=== PATIENT | male | born 1945 | race Caucasian/White ===

== ENCOUNTER 2019-05-13 19:46 | Inpatient (IN) | payer OTHER ==
--- NOTE | 2019-05-13 20:30 | PDOC ---
History of Present Illness - General Chief Complaint: SIRS, Suspected/Possible Stated Complaint: CHILLS/DIF/BREATHING/L/CHEST PAIN Time Seen by Provider: 05/13/19 20:29 Past History - Past Medical History Allergies/Adverse Reactions: Allergies Allergy/AdvReac Type Severity Reaction Status Date / Time No Known Allergies Allergy Verified 03/10/14 18:35 Home Medications: Ambulatory Orders Tacrolimus [Prograf] 1 mg PO BID 03/10/14 Candesartan Cilexetil [Atacand -] 8 mg PO DAILY 02/13/16 HTN: Yes Liver Disease: Yes (LIVER TRANSPLANT) - Surgical History Abdominal Surgery: Yes (LIVER TRANSPLANT) - Suicide/Smoking/Psychosocial Hx Smoking History: Never smoked Hx Alcohol Use: No Drug/Substance Use Hx: No *Physical Exam - Vital Signs Last Vital Signs Temp Pulse Resp BP Pulse Ox 101.1 F H 105 H 20 133/59 L 96 05/13/19 20:17 05/13/19 20:17 05/13/19 20:17 05/13/19 20:17 05/13/19 20:17 ED Treatment Course - LABORATORY CBC & Chemistry Diagram: 05/15/19 04:13 05/15/19 04:13 Medical Decision Making - Medical Decision Making 73yo M with 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 Patient states he felt very "shaky" and "hot and cold" all day. Denies sick contacts or recent travel. He is concerned that he applied a significant amount of bug spray yesterday and today as he was working outside the house. Starting feeling chest pain described as a "tightness" and "discomfort" starting around 10:15 with associated diaphoresis. This pain abated around noon when he saw his primary care physician. While he attended several meetings throughout the day, reports feeling very "weak." Has not taken anything for his symptoms. Endorses subjective fever and chills. PCP: Dr. Coleman Hepatology: Dr. Mikey Adrian ROS: Constitutional: +fever, +chills HEENT: no throat pain, no dysphagia Cardiovascular: +chest pain, no palpitations Respiratory: no cough, no shortness of breath Gastrointestinal: no abdominal pain, no diarrhea Genitourinary: no dysuria, no hematuria Musculoskeletal: no myalgia, no arthralgia Skin: no rash, no itching Neurologic: no headache, +weakness PE: General: Awake, alert, and fully oriented, in no acute distress Head: No signs of trauma Eyes: EOMI, sclera anicteric ENT: Dry mucus membranes Neck: Normal ROM, supple Lungs: Lungs clear, Normal breath sounds Cardio: Regular rhythm, S1 and S2 present Abdomen: Soft, nontender. No guarding, no rebound, no masses Extremities: Normal range of motion, Distal pulses present SKIN: Warm, Dry, normal turgor Neurologic: Cranial nerves II through XII grossly intact. Normal speech ED Course/MDM: DDX including but not limited to SIRS due infection such as UTI, PNA, bacteremia , influenza Patient is s/p liver transplant and on immunosuppressive medications Due to fever and tachycardia, sepsis workup initiated Ofirmev Fluids Vanc/ Zosyn 05/13/19 20:57 EKG: rate 108, QTc 423, sinus tachycardia with PACs Mild leukocytosis, WBC=11.4 No anemia Platelets low at 97 Electrolytes unremarkable Normal lactate Cr=1.5 Tpn undetectable UA without infection Influenza negative Patient initially reluctant to stay for admission as he works as he has an important meeting tomorrow morning, however now amenable to staying. Plan for admission for SIRS in immunocompromised patient Dr. Ryan discussed case with inpatient team who accepted patient for admission under Dr. Coleman Updated patient's who called the ER for an update 05/13/19 23:46 CXR without acute pathology, per radiology: "A single view the chest has been submitted. Since 04/02/2010 there is a slightly more prominent mediastinum with weaker inspiration, central crowding but no sign of any true infiltrate or failure. Angles are sharp. The bones and soft tissues are intact. An acute process is not seen. " *DC/Admit/Observation/Transfer Diagnosis at time of Disposition: Systemic inflammatory response syndrome (SIRS) - Discharge Dispostion Condition at time of disposition: Fair Decision to Admit order: Yes - Referrals - Patient Instructions - Post Discharge Activity
[2019-05-13] MEDS ORDERED: ACETAMINOPHEN 1000 MG/100 ML VIAL (NON FORMULARY) IVPB ONE (20:31)
[2019-05-13] MEDS ORDERED: PIPERACILLIN/TAZOB 4.5 GM 4.5 GM in DEXTROSE 5%-WATER 100 ML IVPB ONE (20:33)
[2019-05-13] MEDS ORDERED: VANCOMYCIN 1 GM in D5W (PRE-DOCKED) 1,000 MG/250 ML IVPB ONE (20:33)
[2019-05-13] MEDS ORDERED: ACETAMINOPHEN INJECTION 100 ML IVPB ONE (20:52)
[2019-05-13] MEDS ORDERED: PIPERACILLIN/TAZOB 4.5 GM 4.5 GM/100 ML BAG IVPB ONE (20:53)
[2019-05-13] MEDS ORDERED: VANCOMYCIN 1 GRAM (PRE-DOCKED) 1,000 MG/250 ML BAG IVPB ONE (20:53)
[2019-05-13 21:42] LABS: VENOUS PC02 34.7 mmHg (38-52); VENOUS PH 7.41 (7.31-7.41); VENOUS PO2 49.7 mmHg (28-48)
[2019-05-13 21:55] LABS: INR 1.17 (0.83-1.09); PROTHROMBIN TIME (PATIENT) 13.8 SEC (9.7-13.0)
[2019-05-13 21:56] LABS: BASO % 0.3 % (0-2.0); EOS % 0.2 % (0-4.5); HEMATOCRIT 40.3 % (35.4-49); HEMOGLOBIN 13.5 GM/dL (11.7-16.9); LYMPH % 4.8 % (8-40); MCH 31.4 pg (25.7-33.7); MCHC 33.4 g/dl (32.0-35.9); MEAN CELL VOLUME 94.1 fl (80-96); MEAN PLT VOLUME 10.5 fl (7.5-11.1); MONO % 7.5 % (3.8-10.2); NEUT % 87.2 % (42.8-82.8); PLATELET COUNT 97 K/MM3 (134-434); RBC 4.29 M/mm3 (4.00-5.60); RDW 14.4 % (11.9-15.9); WHITE BLOOD COUNT 11.3 K/mm3 (4.0-10.0)
[2019-05-13 21:57] LABS: ACTIVATED PTT 32.6 SECONDS (25.2-36.5); ALBUMIN 3.4 g/dl (3.4-5.0); BILIRUBIN,TOTAL 0.8 mg/dL (0.2-1); BLOOD UREA NITROGEN 24.7 mg/dL (7-18); CREATININE 1.5 mg/dL (0.55-1.3); POTASSIUM 4.4 mmol/L (3.5-5.1)
--- NOTE | 2019-05-13 22:01 | PDOC ---
Documentation entered by Roger Royal SCRIBE, acting as scribe for Ramila Rayn DO. Ramila Ryan, DO: This documentation has been prepared by the Genny parks Xhesika, SCRIBE, under my direction and personally reviewed by me in its entirety. I confirm that the documentation accurately reflects all work, treatment, procedures, and medical decision making performed by me. 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 The patient was advised by his PCP, Dr. Barry, to come to the ED for further workup. The patient states he endorsed sick contact at work. Patient states his most recent travels were early March. patient denies any rashes, however, he has gotten some mosquito bites. The patient denies chest pain, shortness of breath, headache. Denies fever, nausea, vomiting, diarrhea and constipation. Denies dysuria, frequency, urgency and hematuria. Allergies: NKDA Past surgical history: liver transplant PCP: Dr. Barry - Physicial Exam PE: 05/13/19 23:33 GENERAL: Awake, alert, and fully oriented, in no acute distress HEAD: No signs of trauma NECK: Normal ROM, supple, no lymphadenopathy, JVD, or masses LUNGS: Breath sounds equal, clear to auscultation bilaterally. No wheezes, and no crackles HEART: (+) tachycardic. Normal S1 and S2, no murmurs, rubs or gallops ABDOMEN: Soft, nontender, normoactive bowel sounds. No guarding, no rebound. No masses EXTREMITIES: Normal range of motion, no edema. No clubbing or cyanosis. No cords, erythema, or tenderness NEUROLOGICAL: Cranial nerves II through XII grossly intact. Normal speech, normal gait SKIN: (+) warm to touch. Dry, normal turgor, no rashes or lesions noted. - Medical Decision Making 05/13/19 21:44 I, Dr. Ramila Ryan, DO, attest that this document has been prepared under my direction and personally reviewed by me in its entirety. I further attest, that it accurately reflects all work, treatment, procedures and medical decision -making performed by me. 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 Barry 05/13/19 22:35 cxr clear 05/13/19 22:36 mildly elevated wbc and elevated cr based on prior cr rodney ivf hydration running lactate neg 05/13/19 22:37 flu neg 05/13/19 22:57 ua sent 05/13/19 23:16 case discussed with Evy Govea NP from [facility] covering dr. barry who accepts pt to service 05/13/19 23:54 ua neg *DC/Admit/Observation/Transfer Diagnosis at time of Disposition: Systemic inflammatory response syndrome (SIRS) - Discharge Dispostion Condition at time of disposition: Fair Decision to Admit order: Yes - Referrals - Patient Instructions - Post Discharge Activity Heart Score/ECG Review - ECG Intrepretation Comment:: 05/13/19 22:35 sinus tach at 108, nl axis, nl inteval, no acute st/t wave findings
[2019-05-13 22:37] LABS: PLATELET ESTIMATE DECREASED
--- NOTE | 2019-05-13 23:22 | HP ---
Admitting History and Physical - Primary Care Physician PCP: Shahzad Coleman - Admission Chief Complaint: Rigors, Fever History of Present Illness: This is a 73 y/o man with a PMHx of Hep B s/p Liver Transplant (on Prograf). Who presents to the ED for fever and rigors. Patient was seen at his PMD today and was noted to have rigors. Patient reports having subjective fever 102.0 at home, with dizziness, lightheadedness and generalized bodyaches. 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 Atacand 16mg po QD. Entecavir po QD Family Disease History - Family Disease History Family Disease History: Diabetes: Father (), Mother (Hepatitis B, ), CA: Sister (Colon Ca with Mets in remission), Other: Mother Review of Systems - Review of Systems Constitutional: reports: Chills, Fever Eyes: reports: No Symptoms HENT: reports: No Symptoms Neck: reports: No Symptoms Cardiovascular: reports: No Symptoms Respiratory: reports: No Symptoms Gastrointestinal: reports: No Symptoms Genitourinary: reports: No Symptoms Breasts: reports: No Symptoms Reported Musculoskeletal: reports: Back Pain Integumentary: reports: No Symptoms Neurological: reports: No Symptoms Endocrine: reports: No Symptoms Hematology/Lymphatic: reports: No Symptoms Psychiatric: reports: No Symptoms Pain Intensity: 4 Physical Examination Vital Signs: Vital Signs Temperature 101.1 F H 05/13/19 20:17 Pulse Rate 105 H 05/13/19 20:17 Respiratory Rate 20 05/13/19 20:17 Blood Pressure 133/59 L 05/13/19 20:17 O2 Sat by Pulse Oximetry (%) 96 05/13/19 20:17 Constitutional: Yes: Well Nourished, No Distress, Obese Eyes: Yes: WNL, Conjunctiva Clear, EOM Intact, Sclera Icterus HENT: Yes: WNL, Atraumatic, Normocephalic Neck: Yes: WNL, Supple, Trachea Midline Cardiovascular: Yes: WNL, Regular Rate and Rhythm, S1, S2 Respiratory: Yes: Diminished (R- base). No: Rales, Rhonchi Gastrointestinal: Yes: WNL, Normal Bowel Sounds, Soft, Abdomen, Obese ...Rectal Exam: Yes: Deferred Renal/: Yes: WNL Breast(s): Yes: WNL Musculoskeletal: Yes: WNL Extremities: Yes: WNL Edema: No Peripheral Pulses WNL: Yes Neurological: Yes: WNL, Alert, Oriented, Cran Nerves II-XII Intact ...Motor Strength: WNL Psychiatric: Yes: WNL, Alert, Oriented Labs: CBC, BMP 05/13/19 21:05 05/13/19 21:05 Laboratory Results - last 24 hr 05/13/19 05/13/19 05/13/19 21:05 21:05 21:05 WBC 11.3 H RBC 4.29 Hgb 13.5 Hct 40.3 MCV 94.1 MCH 31.4 MCHC 33.4 RDW 14.4 Plt Count 97 L MPV 10.5 Absolute Neuts (auto) 9.8 H Neutrophils % 87.2 H D Lymphocytes % 4.8 L D Monocytes % 7.5 Eosinophils % 0.2 D Basophils % 0.3 Nucleated RBC % 0 Platelet Estimate Decreased Platelet Comment No clumping noted PT with INR INR PTT (Actin FS) VBG pH POC VBG pCO2 POC VBG pO2 VBG HCO3 VBG O2 Sat (Faith) VBG Base Excess Sodium 138 Potassium 4.4 Chloride 108 H Carbon Dioxide 23 Anion Gap 7 L BUN 24.7 H Creatinine 1.5 H Est GFR (CKD-EPI)AfAm 53.52 Est GFR (CKD-EPI)NonAf 46.17 Random Glucose 157 H Lactic Acid Calcium 8.0 L Total Bilirubin 0.8 AST 18 ALT 36 Alkaline Phosphatase 139 H Troponin I < 0.02 Total Protein 7.0 Albumin 3.4 Urine Color Urine Appearance Urine pH Ur Specific [place] Urine Protein Urine Glucose (UA) Urine Ketones Urine Blood Urine Nitrite Urine Bilirubin Urine Urobilinogen Ur Leukocyte Esterase Influenza A (Rapid) Influenza B (Rapid) 05/13/19 05/13/19 05/13/19 21:05 21:05 21:05 WBC RBC Hgb Hct MCV MCH MCHC RDW Plt Count MPV Absolute Neuts (auto) Neutrophils % Lymphocytes % Monocytes % Eosinophils % Basophils % Nucleated RBC % Platelet Estimate Platelet Comment PT with INR 13.80 H INR 1.17 H PTT (Actin FS) 32.6 VBG pH 7.41 POC VBG pCO2 34.7 L POC VBG pO2 49.7 H VBG HCO3 21.7 L VBG O2 Sat (Faith) 83.4 H VBG Base Excess -1.9 Sodium Potassium Chloride Carbon Dioxide Anion Gap BUN Creatinine Est GFR (CKD-EPI)AfAm Est GFR (CKD-EPI)NonAf Random Glucose Lactic Acid 1.5 Calcium Total Bilirubin AST ALT Alkaline Phosphatase Troponin I Total Protein Albumin Urine Color Urine Appearance Urine pH Ur Specific [place] Urine Protein Urine Glucose (UA) Urine Ketones Urine Blood Urine Nitrite Urine Bilirubin Urine Urobilinogen Ur Leukocyte Esterase Influenza A (Rapid) Influenza B (Rapid) 05/13/19 05/13/19 21:18 23:30 WBC RBC Hgb Hct MCV MCH MCHC RDW Plt Count MPV Absolute Neuts (auto) Neutrophils % Lymphocytes % Monocytes % Eosinophils % Basophils % Nucleated RBC % Platelet Estimate Platelet Comment PT with INR INR PTT (Actin FS) VBG pH POC VBG pCO2 POC VBG pO2 VBG HCO3 VBG O2 Sat (Faith) VBG Base Excess Sodium Potassium Chloride Carbon Dioxide Anion Gap BUN Creatinine Est GFR (CKD-EPI)AfAm Est GFR (CKD-EPI)NonAf Random Glucose Lactic Acid Calcium Total Bilirubin AST ALT Alkaline Phosphatase Troponin I Total Protein Albumin Urine Color Yellow Urine Appearance Clear Urine pH 5.0 Ur Specific [place] 1.018 Urine Protein Negative Urine Glucose (UA) Negative Urine Ketones Negative Urine Blood Negative Urine Nitrite Negative Urine Bilirubin Negative Urine Urobilinogen 1.0 Ur Leukocyte Esterase Negative Influenza A (Rapid) Negative Influenza B (Rapid) Negative Intake & Output 05/11/19 05/12/19 05/13/19 05/14/19 23:59 23:59 23:59 23:59 Weight 104.78 kg Current Medications Generic Name Dose Route Start Last Admin Trade Name Freq PRN Reason Stop Dose Admin Entecavir 0.5 mg 05/14/19 10:00 Baraclude - PO DAILY [facility] Heparin Sodium (Porcine) 5,000 unit 05/14/19 10:00 Heparin - SQ BID [facility] Non-Formulary Medication 16 mg 05/14/19 10:00 Candesartan Cilexetil PO DAILY [facility] Tacrolimus 2 mg 05/14/19 02:14 Prograf PO BID [facility] Imaging - Results Chest X-ray: Report Reviewed, Image Reviewed EKG: Pending Problem List - Problems (1) Sepsis Assessment/Plan: Likely secondary to Pneumonia Sepsis Criteria Met IV: T Max 101.1, P 110, WBC 11.0, BUN 24.7 qSOFA Blood Culture-pending Urine Culture-pending Chest Xray read as clear, however after reviewing image ? RLL Infiltrate UA- negative Will order Chest CT without contrast due to RONALD r/o PNA Vancomycin and Zosyn given in ED, will continue renal dosing Appreciate ID consult Monitor CBC, BMP Monitor vitals Code(s): A41.9 - SEPSIS, UNSPECIFIED ORGANISM (2) HTN (hypertension) Assessment/Plan: Stable Continue home meds Monitor renal function Code(s): I10 - ESSENTIAL (PRIMARY) HYPERTENSION (3) Hepatitis B Assessment/Plan: s/p Liver Transplant Continue home meds Code(s): B19.10 - UNSPECIFIED VIRAL HEPATITIS B WITHOUT HEPATIC COMA (4) S/P liver transplant Assessment/Plan: Continue Prograf Code(s): Z94.4 - LIVER TRANSPLANT STATUS Assessment/Plan This is a 73 y/o man with a PMHx of Hep B (s/p Liver Transplant on Prograft). Admitted for Sepsis, Pneumonia for further evaluation of their emergent condition. Plan: See Problem List FEN PO fluids as tolerated Replete lytes prn Low Na Diet DVT ppx OOB SCDs Heparin SQ Dispo: Requires Inpatient Care Visit type - Emergency Visit Emergency Visit: Yes ED Registration Date: 05/13/19 Care time: The patient presented to the Emergency Department on the above date and was hospitalized for further evaluation of their emergent condition. - New Patient This patient is new to me today: Yes Date on this admission: 05/14/19 - Critical Care Critical Care patient: No
[2019-05-13 23:36] LABS: URINE APPEARANCE CLEAR; URINE BILIRUBIN NEGATIVE (NEGATIVE); URINE COLOR YELLOW; URINE GLUCOSE (UA) NEGATIVE (NEGATIVE); URINE KETONE NEGATIVE (NEGATIVE); URINE LEUK ESTERASE NEGATIVE (NEGATIVE); URINE NITRITE NEGATIVE (NEGATIVE); URINE PROTEIN NEGATIVE (NEGATIVE)
[2019-05-14] MEDS: TACROLIMUS ANHYDROUS 1 MG CAPSULE PO SCH ×3 (02:52→23:39)
[2019-05-14 03:33] VITALS: BMI 32.0
[2019-05-14 08:21] LABS: BLOOD UREA NITROGEN 22.8 mg/dL (7-18); CALCIUM 8.2 mg/dL (8.5-10.1); CREATININE 1.5 mg/dL (0.55-1.3)
[2019-05-14 08:28] LABS: BASO % 0.3 % (0-2.0); EOS % 1.3 % (0-4.5); HEMATOCRIT 38.3 % (35.4-49); HEMOGLOBIN 12.9 GM/dL (11.7-16.9); LYMPH % 13.6 % (8-40); MCHC 33.8 g/dl (32.0-35.9); MEAN CELL VOLUME 94.5 fl (80-96); MEAN PLT VOLUME 10.5 fl (7.5-11.1); MONO % 9.6 % (3.8-10.2); NEUT % 75.2 % (42.8-82.8); PLATELET COUNT 84 K/MM3 (134-434); RBC 4.05 M/mm3 (4.00-5.60); RDW 14.4 % (11.9-15.9); WHITE BLOOD COUNT 8.3 K/mm3 (4.0-10.0)
[2019-05-14] MEDS ORDERED: VANCOMYCIN HCL 1,250 MG in DEXTROSE 5%-WATER - 250 ML IVPB ONE (08:30)
[2019-05-14] MEDS ORDERED: PT OWN MED DRAWER 7, Y5N ONE ×3 (08:50→21:57)
[2019-05-14] MEDS ORDERED: PIPERACILLIN/TAZOBACTAM 3.375 GM VIAL IVPB ONE (08:51)
[2019-05-14] MEDS ORDERED: DEXTROSE 5%-WATER - 50 ML IVPB ONE (08:51)
[2019-05-14] MEDS: HEPARIN NA (PORCINE) 5,000 UNITS/ML 1ML VIAL SQ SCH ×2 (09:41→22:04)
[2019-05-14] MEDS: VALSARTAN 160 MG TABLET (UD) PO SCH (09:41)
[2019-05-14] MEDS ORDERED: PIPERACILLIN/TAZOB 3.375 GM 3.375 GM in DEXTROSE 5%-WATER - 50 ML IVPB SCH (10:00)
--- NOTE | 2019-05-14 10:27 | PN ---
Progress Note, Physician Chief Complaint: AWAKE ALERT SENT IN FOR FEVER/CHILLS LIVER TRANSPLANT 20 YRS AGO ON IMUNNOSUPPRESSIVE THERAPY - Current Medication List Current Medications: Active Medications Entecavir (Baraclude -) 0.5 mg PO DAILY [facility] Heparin Sodium (Porcine) (Heparin -) 5,000 unit SQ BID [facility] Last Admin: 05/14/19 09:41 Dose: Not Given Vancomycin HCl 1,250 mg/ (Dextrose) 250 mls @ 250 mls/2 hr IVPB Q24H RICH; Protocol Piperacillin Sod/Tazobactam (Sod 3.375 gm/ Dextrose) 50 mls @ 100 mls/hr IVPB Q8H-IV RICH; Protocol Piperacillin Sod/Tazobactam (Sod 3.375 gm/ Dextrose) 50 mls @ 100 mls/hr IVPB Q8H-IV RICH Stop: 05/14/19 18:29 Last Admin: 05/14/19 09:42 Dose: 100 mls/hr Tacrolimus (Prograf) 2 mg PO BID [facility] Last Admin: 05/14/19 09:41 Dose: 2 mg Valsartan (Diovan -) 160 mg PO DAILY [facility] Last Admin: 05/14/19 09:41 Dose: 160 mg - Objective Vital Signs: Vital Signs Temperature 97.6 F 05/14/19 03:02 Pulse Rate 61 05/14/19 03:02 Respiratory Rate 18 05/14/19 03:02 Blood Pressure 113/55 L 05/14/19 03:02 O2 Sat by Pulse Oximetry (%) 96 05/14/19 03:02 Constitutional: Yes: No Distress Cardiovascular: Yes: Regular Rate and Rhythm Respiratory: Yes: WNL Gastrointestinal: Yes: WNL Genitourinary: Yes: WNL Extremities: Yes: WNL Edema: No Peripheral Pulses WNL: Yes Integumentary: Yes: WNL Wound/Incision: Yes: Clean/Dry Neurological: Yes: WNL ...Motor Strength: WNL Psychiatric: Yes: WNL Labs: CBC, BMP 05/14/19 06:30 05/14/19 06:30 INR, PTT INR 1.17 (0.83-1.09) H 05/13/19 21:05 Problem List - Problems (1) HTN (hypertension) Code(s): I10 - ESSENTIAL (PRIMARY) HYPERTENSION (2) Hepatitis B Code(s): B19.10 - UNSPECIFIED VIRAL HEPATITIS B WITHOUT HEPATIC COMA (3) Sepsis Code(s): A41.9 - SEPSIS, UNSPECIFIED ORGANISM (4) Systemic inflammatory response syndrome (SIRS) Code(s): R65.10 - SIRS OF NON-INFECTIOUS ORIGIN W/O ACUTE ORGAN DYSFUNCTION (5) Cellulitis Code(s): L03.90 - CELLULITIS, UNSPECIFIED Assessment/Plan IV ABX BROAD SPECTRM CHECK CULTURES ID WORKUP IN PROGRESS DVT PROPHYLAXIS OOB TO CHAIR
--- NOTE | 2019-05-14 12:25 | EKG ---
Test Reason : Blood Pressure : / mmHG Vent. Rate : 108 BPM Atrial Rate : 108 BPM P-R Int : 120 ms QRS Dur : 072 ms QT Int : 316 ms P-R-T Axes : 053 058 054 degrees QTc Int : 423 ms SINUS TACHYCARDIA WITH PREMATURE ATRIAL COMPLEXES OTHERWISE NORMAL ECG WHEN COMPARED WITH ECG OF 02-APR-2010 01:34, PREMATURE VENTRICULAR COMPLEXES ARE NO LONGER PRESENT PREMATURE ATRIAL COMPLEXES ARE NOW PRESENT Confirmed by BRANDON DAVIDSON, KELSEY ([id number]) on 05/14/2019 12:25:29 PM Referred By: Confirmed By:KELSEY TAYLOR MD
[2019-05-14] MEDS: ENTECAVIR 0.5 MG TABLET PO SCH (14:14)
--- NOTE | 2019-05-14 15:31 | CONSULT ---
Consultation: CONSULT REQUEST: Nephrology Resident (Dr. 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 Pt is being worked up for infectious etiology especially due to his anti-rejection medications. We were asked to medically evaluate this patient 2/2 increase Cr. Pt reports having no chills throughout his hospital stay. He reports being on Prograf for the past 20 years (since his transplantation) and has never been on mycophenalate before. Pt denies any chest pain, shortness of breath, cough, hematuria, polyuria, dysuria. Pt has never seen a Landing Worker in the past and is adherant to regular follow-ups with Dr. Coleman and his transplant physician Dr. Adrian ([place]) PMHx: As above PSHx: Liver transplantation performed at [facility] 20 years prior SoHx: Tobacco - Denies Alcohol - Denies Illicit drugs - Denies Lives at home with ; independent in ADLs REVIEW OF SYSTEMS: As per HPI PHYSICAL EXAMINATION Vital Signs 05/13/19 05/13/19 05/14/19 20:17 21:00 01:54 Temperature 101.1 F H 99 F 97.5 F L Pulse Rate 105 H 81 Pulse Rate [ 81 64 Right Radial] Respiratory 20 16 19 Rate Blood Pressure 133/59 L Blood Pressure 119/63 116/58 L [Left Arm] O2 Sat by Pulse 96 95 98 Oximetry (%) 05/14/19 05/14/19 03:02 15:27 Temperature 97.6 F 100.0 F H Pulse Rate 61 100 H Pulse Rate [ Right Radial] Respiratory 18 18 Rate Blood Pressure 113/55 L 156/84 Blood Pressure [Left Arm] O2 Sat by Pulse 96 Oximetry (%) GENERAL: Awake, alert, and fully oriented, in no acute distress. HEENT: Nc/AT, [place], sclera anicteric, MMM NECK: No JVD LUNGS: CTA bilaterally. No wheezes, and no crackles. No accessory muscle use. HEART: RRR, normal S1 and S2 without murmur. ABDOMEN: Soft, nontender, not distended, normoactive bowel sounds, no guarding EXTREMITIES: 2+ DP pulses, warm, well-perfused. No calf tenderness. No peripheral edema. PSYCHIATRIC: Cooperative. Good eye contact. Appropriate mood and affect. SKIN: Warm, dry, no rashes or lesions noted. Laboratory Results - last 24 hr 05/13/19 05/13/19 05/13/19 21:05 21:05 21:05 WBC 11.3 H RBC 4.29 Hgb 13.5 Hct 40.3 MCV 94.1 MCH 31.4 MCHC 33.4 RDW 14.4 Plt Count 97 L MPV 10.5 Absolute Neuts (auto) 9.8 H Neutrophils % 87.2 H D Lymphocytes % 4.8 L D Monocytes % 7.5 Eosinophils % 0.2 D Basophils % 0.3 Nucleated RBC % 0 Platelet Estimate Decreased Platelet Comment No clumping noted PT with INR INR PTT (Actin FS) VBG pH POC VBG pCO2 POC VBG pO2 VBG HCO3 VBG O2 Sat (Faith) VBG Base Excess Sodium 138 Potassium 4.4 Chloride 108 H Carbon Dioxide 23 Anion Gap 7 L BUN 24.7 H Creatinine 1.5 H Est GFR (CKD-EPI)AfAm 53.52 Est GFR (CKD-EPI)NonAf 46.17 Random Glucose 157 H Lactic Acid Calcium 8.0 L Total Bilirubin 0.8 AST 18 ALT 36 Alkaline Phosphatase 139 H Troponin I < 0.02 Total Protein 7.0 Albumin 3.4 Urine Color Urine Appearance Urine pH Ur Specific [place] Urine Protein Urine Glucose (UA) Urine Ketones Urine Blood Urine Nitrite Urine Bilirubin Urine Urobilinogen Ur Leukocyte Esterase Influenza A (Rapid) Influenza B (Rapid) 05/13/19 05/13/19 05/13/19 21:05 21:05 21:05 WBC RBC Hgb Hct MCV MCH MCHC RDW Plt Count MPV Absolute Neuts (auto) Neutrophils % Lymphocytes % Monocytes % Eosinophils % Basophils % Nucleated RBC % Platelet Estimate Platelet Comment PT with INR 13.80 H INR 1.17 H PTT (Actin FS) 32.6 VBG pH 7.41 POC VBG pCO2 34.7 L POC VBG pO2 49.7 H VBG HCO3 21.7 L VBG O2 Sat (Faith) 83.4 H VBG Base Excess -1.9 Sodium Potassium Chloride Carbon Dioxide Anion Gap BUN Creatinine Est GFR (CKD-EPI)AfAm Est GFR (CKD-EPI)NonAf Random Glucose Lactic Acid 1.5 Calcium Total Bilirubin AST ALT Alkaline Phosphatase Troponin I Total Protein Albumin Urine Color Urine Appearance Urine pH Ur Specific [place] Urine Protein Urine Glucose (UA) Urine Ketones Urine Blood Urine Nitrite Urine Bilirubin Urine Urobilinogen Ur Leukocyte Esterase Influenza A (Rapid) Influenza B (Rapid) 05/13/19 05/13/19 05/14/19 21:18 23:30 06:30 WBC 8.3 RBC 4.05 Hgb 12.9 Hct 38.3 MCV 94.5 MCH 32.0 MCHC 33.8 RDW 14.4 Plt Count 84 L MPV 10.5 Absolute Neuts (auto) 6.3 Neutrophils % 75.2 Lymphocytes % 13.6 D Monocytes % 9.6 Eosinophils % 1.3 D Basophils % 0.3 Nucleated RBC % 0 Platelet Estimate Platelet Comment PT with INR INR PTT (Actin FS) VBG pH POC VBG pCO2 POC VBG pO2 VBG HCO3 VBG O2 Sat (Faith) VBG Base Excess Sodium Potassium Chloride Carbon Dioxide Anion Gap BUN Creatinine Est GFR (CKD-EPI)AfAm Est GFR (CKD-EPI)NonAf Random Glucose Lactic Acid Calcium Total Bilirubin AST ALT Alkaline Phosphatase Troponin I Total Protein Albumin Urine Color Yellow Urine Appearance Clear Urine pH 5.0 Ur Specific [place] 1.018 Urine Protein Negative Urine Glucose (UA) Negative Urine Ketones Negative Urine Blood Negative Urine Nitrite Negative Urine Bilirubin Negative Urine Urobilinogen 1.0 Ur Leukocyte Esterase Negative Influenza A (Rapid) Negative Influenza B (Rapid) Negative 05/14/19 06:30 WBC RBC Hgb Hct MCV MCH MCHC RDW Plt Count MPV Absolute Neuts (auto) Neutrophils % Lymphocytes % Monocytes % Eosinophils % Basophils % Nucleated RBC % Platelet Estimate Platelet Comment PT with INR INR PTT (Actin FS) VBG pH POC VBG pCO2 POC VBG pO2 VBG HCO3 VBG O2 Sat (Faith) VBG Base Excess Sodium 142 Potassium 4.0 Chloride 107 Carbon Dioxide 24 Anion Gap 11 BUN 22.8 H Creatinine 1.5 H Est GFR (CKD-EPI)AfAm 53.52 Est GFR (CKD-EPI)NonAf 46.17 Random Glucose 189 H Lactic Acid Calcium 8.2 L Total Bilirubin AST ALT Alkaline Phosphatase Troponin I Total Protein Albumin Urine Color Urine Appearance Urine pH Ur Specific [place] Urine Protein Urine Glucose (UA) Urine Ketones Urine Blood Urine Nitrite Urine Bilirubin Urine Urobilinogen Ur Leukocyte Esterase Influenza A (Rapid) Influenza B (Rapid) Active Medications Generic Name Dose Route Start Last Admin Trade Name Freq PRN Reason Stop Dose Admin Entecavir 0.5 mg 05/14/19 10:00 05/14/19 14:14 Baraclude - PO 0.5 mg DAILY RICH Administration Heparin Sodium (Porcine) 5,000 unit 05/14/19 10:00 05/14/19 09:41 Heparin - SQ Not Given BID RICH Vancomycin HCl 1,250 mg/ 250 mls @ 250 mls/2 hr 05/15/19 10:00 Dextrose IVPB Q24H RICH Protocol Piperacillin Sod/Tazobactam 50 mls @ 100 mls/hr 05/15/19 02:00 Sod 3.375 gm/ Dextrose IVPB Q8H-IV RICH Protocol Piperacillin Sod/Tazobactam 50 mls @ 100 mls/hr 05/14/19 10:00 05/14/19 09:42 Sod 3.375 gm/ Dextrose IVPB 05/14/19 18:29 100 mls/hr Q8H-IV RICH Administration Tacrolimus 2 mg 05/14/19 02:14 05/14/19 09:41 Prograf PO 2 mg BID RICH Administration Valsartan 160 mg 05/14/19 10:00 05/14/19 09:41 Diovan - PO 160 mg DAILY RICH Administration ASSESSMENT/PLAN: Acute kidney insufficiency Liver transplant 2/2 to Hepatitis B HTN --Likely pre-renal azotemia 2/2 to fever/rigors --Renal US ordered for r/o anatomical abnormalities --Urine Cr and Urine Na for calculation of FeNa --Prograf level ordered --Monitor Cr --Continue Diovan currently --If Cr worsens will have to hold, but will assess tomorrow. --Avoid nephrotoxic agents --Encourage PO intake; IVF PRN if PO intake decreases Rest per primary teams Thank you for this consultative opportunity. Case discussed with Dr. Clementina Dickerson, DO - IM PGY-3 Visit type - Emergency Visit Emergency Visit: Yes ED Registration Date: 05/13/19 Care time: The patient presented to the Emergency Department on the above date and was hospitalized for further evaluation of their emergent condition. - New Patient This patient is new to me today: Yes Date on this admission: 05/14/19 - Critical Care Critical Care patient: No
--- NOTE | 2019-05-14 16:12 | PN ---
Progress Note (short form) - Note Progress Note: ID CONSULT DICTATED FEVER/ CHILLS ? SOURCE ? BACTERMIA/ENDOCARDITIS SECONDARY TO RECENT DENTAL WORK ? TICK/ MOSQUITO RELATED ILLNESS LEUKOCYTOSIS THROMBOCYTOPENIA CHRONIC S/P LIVER TRANPLANT AWAIT C/S, SEROLOGIES CONTINUE EMPIRIC ZOSYN/ VANCOMYCIN
--- NOTE | 2019-05-14 16:40 | PN ---
Teaching Attending Note Name of Resident: Mehul Dickerson (Nephrology) ATTENDING PHYSICIAN STATEMENT I saw and evaluated the patient. I reviewed the resident's note and discussed the case with the resident. I agree with the resident's findings and plan as documented. 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 I was called to evaluate him for elevated creatinine. He denies shortness of breath or lower ext edema. He denies dysuria or hematuria. He is on 2 mg of prograf for his liver transplant. pmhx liver transplant htn pshx live transplant nkda social hx denies family hx denies Current Medications Generic Name Dose Route Start Last Admin Trade Name Freq PRN Reason Stop Dose Admin Entecavir 0.5 mg 05/14/19 10:00 05/14/19 14:14 Baraclude - PO 0.5 mg DAILY RICH Administration Heparin Sodium (Porcine) 5,000 unit 05/14/19 10:00 05/14/19 09:41 Heparin - SQ Not Given BID RICH Vancomycin HCl 1,000 mg in 250 mls @ 166.667 mls/hr 05/14/19 22:00 Vancomycin (Pre-Docked) IVPB Q12H RICH Protocol Piperacillin Sod/Tazobactam 100 mls @ 200 mls/hr 05/14/19 18:00 Sod 4.5 gm/ Dextrose IVPB Q8H-IV RICH Protocol Ibuprofen 400 mg 05/14/19 16:30 Motrin - PO Q8H PRN FEVER Tacrolimus 2 mg 05/14/19 02:14 05/14/19 09:41 Prograf PO 2 mg BID RICH Administration Valsartan 160 mg 05/14/19 10:00 05/14/19 09:41 Diovan - PO 160 mg DAILY RICH Administration Microbiology Laboratory Tests 05/13/19 23:30 Urine Protein Negative Urine Blood Negative Last Vital Signs Temp Pulse Resp BP Pulse Ox 100 F H 100 H 18 156/84 96 05/14/19 15:42 05/14/19 15:42 05/14/19 15:42 05/14/19 15:42 05/14/19 03:02 cardio s1s2 pulm clear GI soft ext neg edema neuro awake and alert Impression 1. RONALD vs CKD 2. liver transplant 3. htn 4. hx hep B 5. fever Plan - follow cultures - repeat labs in am - check prograf level - check urine lytes and cleaner window - check renal ultrasound - hold diovan if renal function worsens - gi eval
--- NOTE | 2019-05-14 16:45 | CONS ---
DATE OF CONSULTATION: DATE OF DICTATION: 05/14/2019 The patient is a 73-year-old male status post liver transplant 20 years ago, now evaluated for fever and chills. The patient states he was well until yesterday at approximately 10 a.m. He was at his office. He developed abrupt onset of shaking chills associated with subjective fever and dizziness. He contacted his primary care physician. He was evaluated and discharged home. Upon returning home, patient had a recurrent episode of shaking chills, fever to 102. He presented to the emergency room where he was admitted. In the emergency room patient was noted to have a fever of 101.1 and a white blood cell count of 11.3. He has no other focal complaint. He denies any headache, neck stiffness. No chest pain, shortness of breath, cough, sputum production, hemoptysis. No dysuria, hematuria. No vomiting or diarrhea. No rash. Patient states he has had ill contacts at work. 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 He recently traveled to [place] and [place], [place]. He states he works out in his back yard and has had mosquito bites; however, has no recall for any specific incident. Denies any tick exposure. No rash has been noted. Patient lives at home with his . No recent foreign travel. He was born in [place] and has been living in [place] many years. 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 Patient reports having a dental extraction approximately 1-1/2 weeks ago. He was prescribed an antibiotic; however, did not complete the course. PAST MEDICAL HISTORY: Positive for hypertension and liver transplant 20 years ago. Liver transplant was secondary to complications of chronic hepatitis B. He has been on tacrolimus and entecavir since that time. His liver transplant has been stable. ALLERGIES: No known allergies. MEDICATIONS: Include tacrolimus, Atacand, and entecavir. SOCIAL HISTORY: As per HPI. He is a nonsmoker, occasional EtOH. REVIEW OF SYSTEMS: Neurologic: No loss of consciousness, seizure activity, focal weakness. Cardiac: Negative chest pain or palpitations. Respiratory: Negative cough or sputum production. Gastrointestinal: Negative vomiting or diarrhea. Genitourinary: Negative for urinary tract infection. LABORATORY DATA: White count 11.3, 87 neutrophils, 4 lymphocytes, 7 monocytes. White count presently 8.3, hematocrit 38.3, platelets 84. BUN 22, creatinine 1.5. Urinalysis negative. Total bilirubin 0.8, alkaline phosphatase 139, AST 18, ALT 36. Influenza swab negative. Chest x-ray negative for infiltrate. CAT scan of the chest is pending. PHYSICAL EXAMINATION: General: He is awake and alert. He is noted during exam to have shaking chills. Vital Signs: Temperature 97.6, blood pressure 113/55, pulse 61 and regular, respirations 18 per minute. HEENT: Sclerae are anicteric. Neck: Supple. No palpable nodes. Heart: Heart sounds S1, S2. No murmur. Lungs: Clear. Abdomen: Large abdominal surgical scar. Abdomen is soft and nontender. Extremities: Negative for edema. No rashes noted. There are multiple contusions noted on the pretibial areas of the legs bilaterally. IMPRESSION: 1. Fever, rigors, rule out sepsis. 2. Leukocytosis. 3. Thrombocytopenia which appears chronic in nature. Patient has no localizing signs or symptoms of infection; however, concern about an occult infection, possible bacteremia/endocarditis secondary to recent dental work. Tick and mosquito-related illnesses a possibility; however, no clear exposure, no rash, and labs do not reflect this. Will await blood cultures, obtain sedimentation rate, C-reactive protein. Await CAT scan reading. Continue empiric vancomycin and Zosyn. Repeat CBC a.m. with differential. May require a more extensive FUO workup source of infection not identified. Thank you for the kind referral. ELIVN LEAL M.D. ALVARADO/[id number]
[2019-05-14] MEDS ORDERED: DEXTROSE 5%-WATER 100 ML IVPB ONE (16:48)
[2019-05-14] MEDS ORDERED: PIPERACILLIN/TAZOBACTAM 4.5 GM VIAL IVPB ONE (16:48)
[2019-05-14] MEDS: PIPERACILLIN/TAZOB 4.5 GM 4.5 GM in DEXTROSE 5%-WATER 100 ML IVPB SCH (17:07)
[2019-05-14] MEDS ORDERED: ACETAMINOPHEN 1000 MG/100 ML VIAL (NON FORMULARY) IVPB ONE (17:15)
[2019-05-14] MEDS: VANCOMYCIN 1 GRAM (PRE-DOCKED) 1,000 MG/250 ML BAG IVPB SCH (22:03)
--- NOTE | 2019-05-15 00:20 | HOSP ---
Subjective - Review of Symptoms Events since last encounter: Hospitalist Encounter Chest CT impression- an apparent small pneumoperitoneum along the superior border of the left hepatic lobe Arrived to bedside to reassess patient who is asleep but easily arousable. Patient reports feeling hot, but denies chills. Patient denies SOB or chest pain. Patient denies abdominal pain. He reports having a BM yesterday that was hard. He reports voiding 3 times yesterday. PE performed see EMR Plan: CTAP- stat r/o Pneumoperitoneum Physical Examination Vital Signs: Vital Signs Temperature 98.8 F 05/14/19 22:10 Pulse Rate 89 05/14/19 22:10 Respiratory Rate 18 05/14/19 22:10 Blood Pressure 115/60 05/14/19 22:10 O2 Sat by Pulse Oximetry (%) 96 05/14/19 09:00 Constitutional: Yes: Well Nourished, No Distress, Calm, Obese Eyes: Yes: WNL, Conjunctiva Clear, EOM Intact, PERRL HENT: Yes: WNL, Atraumatic, Normocephalic Neck: Yes: WNL, Supple, Trachea Midline Cardiovascular: Yes: WNL, Regular Rate and Rhythm, S1, S2 Respiratory: Yes: WNL, Regular, CTA Bilaterally Gastrointestinal: Yes: Soft, Abdomen, Obese, Hypoactive Bowel Sounds. No: Tenderness, Tenderness, Epigastrium, Tenderness, Rebound Renal/: Yes: WNL Musculoskeletal: Yes: WNL Extremities: Yes: WNL Edema: No Peripheral Pulses WNL: Yes Neurological: Yes: WNL, Alert, Oriented, Cran Nerves II-XII Intact ...Motor Strength: WNL Psychiatric: Yes: WNL, Alert, Oriented Labs: CBC, BMP 05/14/19 06:30 05/14/19 06:30 Laboratory Results - last 24 hr 05/14/19 05/14/19 05/14/19 06:30 06:30 17:00 WBC 8.3 RBC 4.05 Hgb 12.9 Hct 38.3 MCV 94.5 MCH 32.0 MCHC 33.8 RDW 14.4 Plt Count 84 L MPV 10.5 Absolute Neuts (auto) 6.3 Neutrophils % 75.2 Lymphocytes % 13.6 D Monocytes % 9.6 Eosinophils % 1.3 D Basophils % 0.3 Nucleated RBC % 0 Sodium 142 Potassium 4.0 Chloride 107 Carbon Dioxide 24 Anion Gap 11 BUN 22.8 H Creatinine 1.5 H Est GFR (CKD-EPI)AfAm 53.52 Est GFR (CKD-EPI)NonAf 46.17 Random Glucose 189 H Lactic Acid 1.3 Calcium 8.2 L Current Medications Generic Name Dose Route Start Last Admin Trade Name Freq PRN Reason Stop Dose Admin Entecavir 0.5 mg 05/14/19 10:00 05/14/19 14:14 Baraclude - PO 0.5 mg DAILY RICH Administration Heparin Sodium (Porcine) 5,000 unit 05/14/19 10:00 05/14/19 22:04 Heparin - SQ 5,000 unit BID RICH Administration Vancomycin HCl 1,000 mg in 250 mls @ 166.667 mls/hr 05/14/19 22:00 05/14/19 22:03 Vancomycin (Pre-Docked) IVPB 166.667 mls/hr Q12H RICH Administration Protocol Piperacillin Sod/Tazobactam 100 mls @ 200 mls/hr 05/14/19 18:00 05/14/19 17: 07 Sod 4.5 gm/ Dextrose IVPB 200 mls/hr Q8H-IV RICH Administration Protocol Ibuprofen 400 mg 05/14/19 16:30 Motrin - PO Q8H PRN FEVER Tacrolimus 2 mg 05/14/19 02:14 05/14/19 23:39 Prograf PO 2 mg BID RICH Administration Valsartan 160 mg 05/14/19 10:00 05/14/19 09:41 Diovan - PO 160 mg DAILY RICH Administration Hospitalist Encounter Outcome: CTAP showed- no bowel obstruction, colitis, free fluid, free air. Normal Appendix. Pneumobilia Left Lobe Liver possibly due to prior instrumentation. 1.3cm stone, left kidney, no ureterolithiasis or obstructive uropathy. No bladder calculi, right renal cyst Urology consult placed Patient now febrile 103, P 110 Ordered Valentine Culture NS Bolus 1L Antipyretic given by RN Will continue to monitor Per RN vitals improved, patient is afebrile
[2019-05-15] MEDS ORDERED: PIPERACILLIN/TAZOB 3.375 GM 3.375 GM in DEXTROSE 5%-WATER - 50 ML IVPB SCH (02:00)
[2019-05-15] MEDS ORDERED: PIPERACILLIN/TAZOBACTAM 4.5 GM VIAL IVPB ONE ×3 (02:19→17:12)
[2019-05-15] MEDS ORDERED: DEXTROSE 5%-WATER 100 ML IVPB ONE ×3 (02:19→17:12)
[2019-05-15] MEDS: PIPERACILLIN/TAZOB 4.5 GM 4.5 GM in DEXTROSE 5%-WATER 100 ML IVPB SCH ×3 (02:30→17:14)
[2019-05-15] MEDS: IBUPROFEN 400 MG TABLET (FP) PO PRN (03:33)
[2019-05-15] MEDS ORDERED: SODIUM CHLORIDE 1,000 ML IV STA (03:39)
[2019-05-15 04:45] LABS: HEMOGLOBIN 12.8 GM/dL (11.7-16.9); LYMPH % 7.3 % (8-40); MONO % 4.7 % (3.8-10.2)
[2019-05-15 04:49] LABS: BASO % 0.6 % (0-2.0); EOS % 0.6 % (0-4.5); HEMATOCRIT 38.2 % (35.4-49); MCH 31.7 pg (25.7-33.7); MCHC 33.6 g/dl (32.0-35.9); MEAN CELL VOLUME 94.4 fl (80-96); MEAN PLT VOLUME 10.5 fl (7.5-11.1); NEUT % 86.8 % (42.8-82.8); PLATELET COUNT 70 K/MM3 (134-434); RBC 4.05 M/mm3 (4.00-5.60); RDW 13.9 % (11.9-15.9); WHITE BLOOD COUNT 8.1 K/mm3 (4.0-10.0)
[2019-05-15 05:03] LABS: ALBUMIN 2.9 g/dl (3.4-5.0); BILIRUBIN,TOTAL 1.2 mg/dL (0.2-1); BLOOD UREA NITROGEN 15.7 mg/dL (7-18); CALCIUM 7.6 mg/dL (8.5-10.1); CREATININE 1.4 mg/dL (0.55-1.3); POTASSIUM 3.9 mmol/L (3.5-5.1); TOT PROT 6.3 g/dl (6.4-8.2)
--- NOTE | 2019-05-15 07:13 | DS ---
Physical Examination Vital Signs: Vital Signs Temperature 98.2 F 05/15/19 06:47 Pulse Rate 110 H 05/15/19 03:29 Respiratory Rate 20 05/15/19 03:29 Blood Pressure 170/83 05/15/19 03:29 O2 Sat by Pulse Oximetry (%) 96 05/14/19 09:00 Findings/Remarks: continued fevers/rigors/chills transferring to [facility] liver transplant unit Constitutional: Yes: Mild Distress Labs: CBC, BMP 05/15/19 04:13 05/15/19 04:13 Discharge Summary Reason For Visit: SYSTEMIC INFLAMMATORY RESPONSE SYNDROME(SIRS) Current Active Problems HTN (hypertension) (Acute) Hepatitis B (Acute) S/P liver transplant (Acute) Sepsis (Acute) Systemic inflammatory response syndrome (SIRS) (Acute) Procedures: Principal: ct scans Hospital Course: fevers/chills/rigors, treated broad spectrum antibiotics, ct scans chest and abd /pelvis. transferring to [facility] liver transplant Condition: Fair - Instructions Referrals: Shahzad Coleman MD [Primary Care Provider] - Disposition: TRANSFER ACUTE CARE/OTHER HOSP - Home Medications Comprehensive Discharge Medication List: Ambulatory Orders Tacrolimus [Prograf] 1 mg PO BID 03/10/14 Candesartan Cilexetil [Atacand -] 8 mg PO DAILY 02/13/16 Entecavir [Baraclude] 0.5 mg PO DAILY 02/13/16 Wheat Dextrin [Benefiber] 1 each PO DAILY #0 powd.pack 02/13/16
[2019-05-15] MEDS ORDERED: PT OWN MED DRAWER 7, Y5N ONE ×3 (09:10→20:32)
[2019-05-15] MEDS: VANCOMYCIN 1 GRAM (PRE-DOCKED) 1,000 MG/250 ML BAG IVPB SCH ×2 (09:29→22:32)
[2019-05-15] MEDS: ENTECAVIR 0.5 MG TABLET PO SCH (09:31)
[2019-05-15] MEDS: TACROLIMUS ANHYDROUS 1 MG CAPSULE PO SCH ×2 (09:31→21:11)
[2019-05-15] MEDS: VALSARTAN 160 MG TABLET (UD) PO SCH (09:31)
[2019-05-15] MEDS: HEPARIN NA (PORCINE) 5,000 UNITS/ML 1ML VIAL SQ SCH ×2 (09:32→21:12)
--- NOTE | 2019-05-15 09:33 | CON.GU ---
Consult Consult Specialty:: Referred by:: Jared Reason for Consultation:: kidney stone - History of Present Illness Chief Complaint: kidney stone History of Present Illness: 73 year old male with a liver transplant who denies and history or symptoms was found to have an incidental 1.3cm left renal calculus on CT scan. No obstruction. 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 History of Recent Travel: No Home Medications - Allergies Allergies/Adverse Reactions: Allergies Allergy/AdvReac Type Severity Reaction Status Date / Time No Known Allergies Allergy Verified 03/10/14 18:35 - Home Medications Home Medications: Ambulatory Orders Tacrolimus [Prograf] 1 mg PO BID 03/10/14 Candesartan Cilexetil [Atacand -] 8 mg PO DAILY 02/13/16 Entecavir [Baraclude] 0.5 mg PO DAILY 02/13/16 Wheat Dextrin [Benefiber] 1 each PO DAILY #0 powd.pack 02/13/16 Family Disease History - Family Disease History Family Disease History: Diabetes: Father (), Mother (Hepatitis B, ), CA: Sister (Colon Ca with Mets in remission), Other: Mother Review of Systems - Review of Systems Genitourinary: reports: No Symptoms Physical Exam- Vital Signs: Vital Signs Temperature 99.0 F 05/15/19 08:53 Pulse Rate 74 05/15/19 08:53 Respiratory Rate 18 05/15/19 08:53 Blood Pressure 121/66 05/15/19 08:53 O2 Sat by Pulse Oximetry (%) 96 05/14/19 09:00 Renal/: No: Bladder Distention, CVA Tenderness - Left, CVA Tenderness - Right , Hematuria Labs: CBC, BMP 05/15/19 04:13 05/15/19 04:13 Imaging - Results Cat Scan: Image Reviewed Problem List - Problems (1) Calculus of kidney Assessment/Plan: incidentally found renal calculus. Not acutely significant. follow up as outpaitent Code(s): N20.0 - CALCULUS OF KIDNEY
[2019-05-15] MEDS ORDERED: VANCOMYCIN HCL 1,250 MG in DEXTROSE 5%-WATER - 250 ML IVPB SCH (10:00)
--- NOTE | 2019-05-15 11:16 | PN ---
Progress Note, Physician History of Present Illness: AWAKE, ALERT, AMBULATORY NON TOXIC APPEARING HAD RECURRENT RIGORS AND HIGH GRADE FEVER OVERNIGHT NO FOCAL COMPLAINT BC PRELIM (-) CT CHEST/ ABDO/ PELVIS UNREMARKABLE NO EVIDENCE OF HEMOLYSIS - Current Medication List Current Medications: Active Medications Entecavir (Baraclude -) 0.5 mg PO DAILY [facility] Last Admin: 05/15/19 09:31 Dose: 0.5 mg Heparin Sodium (Porcine) (Heparin -) 5,000 unit SQ BID [facility] Last Admin: 05/15/19 09:32 Dose: Not Given Vancomycin HCl (Vancomycin (Pre-Docked)) 1,000 mg in 250 mls @ 166.667 mls/hr IVPB Q12H RICH; Protocol Last Admin: 05/15/19 09:29 Dose: 166.667 mls/hr Piperacillin Sod/Tazobactam (Sod 4.5 gm/ Dextrose) 100 mls @ 200 mls/hr IVPB Q8H-IV RICH; Protocol Last Admin: 05/15/19 09:30 Dose: 200 mls/hr Ibuprofen (Motrin -) 400 mg PO Q8H PRN PRN Reason: FEVER Last Admin: 05/15/19 03:33 Dose: 400 mg Tacrolimus (Prograf) 2 mg PO BID [facility] Last Admin: 05/15/19 09:31 Dose: 2 mg Valsartan (Diovan -) 160 mg PO DAILY [facility] Last Admin: 05/15/19 09:31 Dose: 160 mg - Objective Vital Signs: Vital Signs Temperature 99.0 F 05/15/19 08:53 Pulse Rate 74 05/15/19 08:53 Respiratory Rate 18 05/15/19 08:53 Blood Pressure 121/66 05/15/19 08:53 O2 Sat by Pulse Oximetry (%) 96 05/14/19 09:00 Constitutional: Yes: No Distress Cardiovascular: Yes: Regular Rate and Rhythm, S1, S2. No: Murmur Respiratory: Yes: CTA Bilaterally Gastrointestinal: Yes: Normal Bowel Sounds, Soft, Other (HEALED SURGICAL SCAR). No: Tenderness Extremities: No: Calf Tenderness Edema: No Labs: CBC, BMP 05/15/19 04:13 05/15/19 04:13 INR, PTT INR 1.17 (0.83-1.09) H 05/13/19 21:05 Assessment/Plan FEVER/ RIGORS UNCLEAR SOURCE WORKUP THUSFAR UNREVEALING CONTINUE EMPIRIC VANCO/ ZOSYN AWAIT TICK SEROLOGIES ADD EMPIRIC DOXYCYCLINE DISCUSSED WITH AT BEDSIDE
--- NOTE | 2019-05-15 11:37 | ECHO ---
Name: ARLYN BLANCO Exam:Adult Echocardiogram Study Date: 05/15/2019 10:37 AM Age: 73 yrs Reason For Study: R/O Endocarditis Fevers Dental work 1 wk.ago Height: 72 in Weight: 236 lb BSA: 2.3 m2 MMode/2D Measurements & Calculations IVSd: 1.2 cm Ao root diam: 2.6 cm LVIDd: 4.9 cm LA dimension: 3.7 cm LVIDs: 3.2 cm LVPWd: 1.1 cm EDV(Teich): 111.2 ml LVOT diam: 2.0 cm ESV(Teich): 41.9 ml Doppler Measurements & Calculations MV E max debra: 83.3 cm/sec Ao V2 max: 176.2 cm/sec MV A max debra: 75.9 cm/sec Ao max P.4 mmHg MV E/A: 1.1 Ao V2 mean: 122.6 cm/sec MV dec time: 0.19 sec Ao mean P.9 mmHg Ao V2 VTI: 35.8 cm CLARK(I,D): 1.9 cm2 CLARK(V,D): 1.9 cm2 LV V1 max P.3 mmHg MR max debra: 391.8 cm/sec LV V1 mean P.1 mmHg MR max P.5 mmHg LV V1 max: 103.1 cm/sec LV V1 mean: 65.8 cm/sec LV V1 VTI: 21.6 cm SV(LVOT): 68.6 ml TR max debra: 224.1 cm/sec TR max P.2 mmHg Left Ventricle Left ventricular systolic function is normal. Ejection Fraction = 55-60%. The transmitral spectral Do ppler flow pattern is normal for age. Right Ventricle The right ventricle is normal in size and function. Atria Normal left and right atrial size and function. Mitral Valve The mitral valve is normal in structure and function. There is no mitral valve stenosis. There is mil d mitral regurgitation. Tricuspid Valve The tricuspid valve is not well visualized. There is mild tricuspid regurgitation. Right ventricular systolic pressure is normal. Aortic Valve The aortic valve is normal in structure and function. No hemodynamically significant valvular aortic stenosis. No aortic regurgitation is present. Pulmonic Valve The pulmonic valve is not well visualized. Great Vessels The aortic root is normal size. Pericardium/Pleura There is no pericardial effusion. Interpretation Summary The tricuspid valve is not well visualized. The pulmonic valve is not well visualized. Left ventricular systolic function is normal. Ejection Fraction = 55-60%. The right ventricle is normal in size and function. There is mild mitral regurgitation. There is mild tricuspid regurgitation. Right ventricular systolic pressure is normal. There is no pericardial effusion. MD Mireles *Jacki 05/15/2019 11:37 AM
--- NOTE | 2019-05-15 15:19 | PN ---
Progress Note, Physician History of Present Illness: Pt seen and examined at bedside. He is awake and alert. He denies shortness of breath. - Current Medication List Current Medications: Active Medications Entecavir (Baraclude -) 0.5 mg PO DAILY [facility] Last Admin: 05/15/19 09:31 Dose: 0.5 mg Heparin Sodium (Porcine) (Heparin -) 5,000 unit SQ BID [facility] Last Admin: 05/15/19 09:32 Dose: Not Given Vancomycin HCl (Vancomycin (Pre-Docked)) 1,000 mg in 250 mls @ 166.667 mls/hr IVPB Q12H [facility]; Protocol Last Admin: 05/15/19 09:29 Dose: 166.667 mls/hr Piperacillin Sod/Tazobactam (Sod 4.5 gm/ Dextrose) 100 mls @ 200 mls/hr IVPB Q8H-IV [facility]; Protocol Last Admin: 05/15/19 09:30 Dose: 200 mls/hr Doxycycline Hyclate 100 mg/ (Dextrose) 100 mls @ 100 mls/hr IVPB BID [facility] Ibuprofen (Motrin -) 400 mg PO Q8H PRN PRN Reason: FEVER Last Admin: 05/15/19 03:33 Dose: 400 mg Tacrolimus (Prograf) 2 mg PO BID [facility] Last Admin: 05/15/19 09:31 Dose: 2 mg Valsartan (Diovan -) 160 mg PO DAILY [facility] Last Admin: 05/15/19 09:31 Dose: 160 mg - Objective Vital Signs: Vital Signs Temperature 98.1 F 05/15/19 14:58 Pulse Rate 75 05/15/19 14:58 Respiratory Rate 18 05/15/19 14:58 Blood Pressure 118/64 05/15/19 14:58 O2 Sat by Pulse Oximetry (%) 96 05/14/19 09:00 Constitutional: Yes: Calm Eyes: Yes: Conjunctiva Clear HENT: Yes: Atraumatic Neck: Yes: Supple Cardiovascular: Yes: S1, S2 Respiratory: Yes: CTA Bilaterally Gastrointestinal: Yes: Soft Genitourinary: Yes: WNL Musculoskeletal: Yes: WNL Edema: No Neurological: Yes: Oriented Psychiatric: Yes: Oriented Labs: CBC, BMP 05/15/19 04:13 05/15/19 04:13 INR, PTT INR 1.17 (0.83-1.09) H 05/13/19 21:05 Problem List - Problems (1) RONALD (acute kidney injury) Code(s): N17.9 - ACUTE KIDNEY FAILURE, UNSPECIFIED (2) Calculus of kidney Code(s): N20.0 - CALCULUS OF KIDNEY (3) HTN (hypertension) Code(s): I10 - ESSENTIAL (PRIMARY) HYPERTENSION (4) Hepatitis B Code(s): B19.10 - UNSPECIFIED VIRAL HEPATITIS B WITHOUT HEPATIC COMA (5) S/P liver transplant Code(s): Z94.4 - LIVER TRANSPLANT STATUS Assessment/Plan Current Medications Generic Name Dose Route Start Last Admin Trade Name Freq PRN Reason Stop Dose Admin Entecavir 0.5 mg 05/14/19 10:00 05/15/19 09:31 Baraclude - PO 0.5 mg DAILY [facility] Administration Heparin Sodium (Porcine) 5,000 unit 05/14/19 10:00 05/15/19 09:32 Heparin - SQ Not Given BID [facility] Vancomycin HCl 1,000 mg in 250 mls @ 166.667 mls/hr 05/14/19 22:00 05/15/19 09:29 Vancomycin (Pre-Docked) IVPB 166.667 mls/hr Q12H [facility] Administration Protocol Piperacillin Sod/Tazobactam 100 mls @ 200 mls/hr 05/14/19 18:00 05/15/19 09: 30 Sod 4.5 gm/ Dextrose IVPB 200 mls/hr Q8H-IV [facility] Administration Protocol Doxycycline Hyclate 100 mg/ 100 mls @ 100 mls/hr 05/15/19 11:30 Dextrose IVPB BID [facility] Ibuprofen 400 mg 05/14/19 16:30 05/15/19 03:33 Motrin - PO 400 mg Q8H PRN Administration FEVER Tacrolimus 2 mg 05/14/19 02:14 05/15/19 09:31 Prograf PO 2 mg BID [facility] Administration Valsartan 160 mg 05/14/19 10:00 05/15/19 09:31 Diovan - PO 160 mg DAILY [facility] Administration Impression 1. RONALD vs CKD 2. liver transplant 3. htn 4. hx hep B 5. fever 6. 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 Will need GI to adjust dose pending level - renal ultrasound reviewed, input appreciated
[2019-05-15] MEDS: DOXYCYCLINE INJECTION 100 MG in DEXTROSE 5%-WATER - 100 ML IVPB SCH ×2 (15:31→21:10)
[2019-05-15] MEDS: ACETAMINOPHEN 325 MG TABLET (FP) PO PRN (17:09)
--- NOTE | 2019-05-15 18:41 | CON.GI ---
Consult Consult Specialty:: Gastroenterology Referred by:: Dr. Coleman Reason for Consultation:: Fever with a liver transplant - History of Present Illness Chief Complaint: Chills ever 12 hours since the morning of 05/13/19 History of Present Illness: 73M has been experiencing chill and fevers since the morning of 05/13/19. He did have a tooth extracted under prophylaxis about a month ago. No diarrhea, abdominal pain, dysuria, cough, oral pain or open wounds. He was scheduled to have a screening colonoscopy with me this Saturday as his colonoscopy with Dr Miller revealed a suboptimal prep in 02/22. 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 Ten years ago he suffered several episodes of choledocholithiasis at [facility] that required repeated PTC drainages. These were felt to be related to a size mismatch between his small female donor bile duct and his distal CBD. He underwent surgery with Dr Sharma that I suspect was a hepaticojejunostomy which remedied this problem. He takes Baraclude to suppress his HBV and Tacrolimus for his transplant. He now is exhibiting renal failure. His LFTs are not remarkable elevated and he denies the biliary colic that with which he typically presented during his spells of cholangitis. 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 Take Baraclude chronically to suppress the HBV. 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 Had multiple PTCs for drainage prior to that.) Renal/: Yes: Renal Calculi - Past Surgical History Past Surgical History: Yes: Colonoscopy (Suboptimal prep with Dr Miller in . Was scheduled for repeat with me on 05/18/19), Liver Transplant ([address] [facility] ( Dr Barkley). 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 Place of : Other ([place]) History of Recent Travel: No Home Medications - Allergies Allergies/Adverse Reactions: Allergies Allergy/AdvReac Type Severity Reaction Status Date / Time No Known Allergies Allergy Verified 03/10/14 18:35 - Home Medications Home Medications: Ambulatory Orders Tacrolimus [Prograf] 1 mg PO BID 03/10/14 Candesartan Cilexetil [Atacand -] 8 mg PO DAILY 02/13/16 Family Disease History - Family Disease History Family Disease History: Diabetes: Father (), Mother (Hepatitis B, ), CA: Sister (Colon Ca with Mets in remission), Other: Mother Review of Systems - Review of Systems Constitutional: reports: Chills, Lethargy, Night Sweats Eyes: reports: No Symptoms HENT: reports: No Symptoms Neck: reports: No Symptoms Cardiovascular: reports: No Symptoms Respiratory: reports: No Symptoms Gastrointestinal: reports: No Symptoms Genitourinary: reports: No Symptoms Musculoskeletal: reports: No Symptoms Neurological: reports: Headache Physical Exam-GI Vital Signs: Vital Signs Temperature 98.1 F 05/15/19 14:58 Pulse Rate 75 05/15/19 14:58 Respiratory Rate 18 05/15/19 14:58 Blood Pressure 118/64 05/15/19 14:58 O2 Sat by Pulse Oximetry (%) 96 05/14/19 09:00 CBC,CMP WBC 8.1 K/mm3 (4.0-10.0) 05/15/19 04:13 RBC 4.05 M/mm3 (4.00-5.60) 05/15/19 04:13 Hgb 12.8 GM/dL (11.7-16.9) 05/15/19 04:13 Hct 38.2 % (35.4-49) 05/15/19 04:13 MCV 94.4 fl (80-96) 05/15/19 04:13 MCH 31.7 pg (25.7-33.7) 05/15/19 04:13 MCHC 33.6 g/dl (32.0-35.9) 05/15/19 04:13 RDW 13.9 % (11.9-15.9) 05/15/19 04:13 Plt Count 70 K/MM3 (134-434) L 05/15/19 04:13 MPV 10.5 fl (7.5-11.1) 05/15/19 04:13 Absolute Neuts (auto) 7.1 K/mm3 (1.5-8.0) 05/15/19 04:13 Neutrophils % 86.8 % (42.8-82.8) H 05/15/19 04:13 Lymphocytes % 7.3 % (8-40) L D 05/15/19 04:13 Monocytes % 4.7 % (3.8-10.2) 05/15/19 04:13 Eosinophils % 0.6 % (0-4.5) 05/15/19 04:13 Basophils % 0.6 % (0-2.0) 05/15/19 04:13 Nucleated RBC % 0 % (0-0) 05/15/19 04:13 Platelet Estimate Decreased 05/13/19 21:05 Platelet Comment No clumping noted 05/13/19 21:05 ESR 36 mm/hr (0-20) H 05/15/19 04:13 Sodium 137 mmol/L (136-145) 05/15/19 04:13 Potassium 3.9 mmol/L (3.5-5.1) 05/15/19 04:13 Chloride 109 mmol/L (98-107) H 05/15/19 04:13 Carbon Dioxide 21 mmol/L (21-32) 05/15/19 04:13 Anion Gap 8 MMOL/L (8-16) 05/15/19 04:13 BUN 15.7 mg/dL (7-18) 05/15/19 04:13 Creatinine 1.4 mg/dL (0.55-1.3) H 05/15/19 04:13 Est GFR (CKD-EPI)AfAm 58.17 05/15/19 04:13 Est GFR (CKD-EPI)NonAf 50.19 05/15/19 04:13 Random Glucose 182 mg/dL (74-106) H 05/15/19 04:13 Lactic Acid 0.8 mmol/L (0.4-2.0) 05/15/19 04:13 Calcium 7.6 mg/dL (8.5-10.1) L 05/15/19 04:13 Total Bilirubin 1.2 mg/dL (0.2-1) H 05/15/19 04:13 AST 20 U/L (15-37) 05/15/19 04:13 ALT 34 U/L (13-61) 05/15/19 04:13 Alkaline Phosphatase 122 U/L (45-117) H 05/15/19 04:13 Troponin I < 0.02 ng/ml (0.00-0.05) 05/13/19 21:05 C-Reactive Protein 13.8 MG/DL (0.00-0.3) H 05/15/19 04:13 Total Protein 6.3 g/dl (6.4-8.2) L 05/15/19 04:13 Albumin 2.9 g/dl (3.4-5.0) L 05/15/19 04:13 Current Medications Generic Name Dose Route Start Last Admin Trade Name Freq PRN Reason Stop Dose Admin Acetaminophen 650 mg 05/15/19 17:00 05/15/19 17:09 Tylenol - PO 650 mg Q6H PRN Administration FEVER Entecavir 0.5 mg 05/14/19 10:00 05/15/19 09:31 Baraclude - PO 0.5 mg DAILY [facility] Administration Heparin Sodium (Porcine) 5,000 unit 05/14/19 10:00 05/15/19 09:32 Heparin - SQ Not Given BID [facility] Vancomycin HCl 1,000 mg in 250 mls @ 166.667 mls/hr 05/14/19 22:00 05/15/19 09:29 Vancomycin (Pre-Docked) IVPB 166.667 mls/hr Q12H [facility] Administration Protocol Piperacillin Sod/Tazobactam 100 mls @ 200 mls/hr 05/14/19 18:00 05/15/19 17: 14 Sod 4.5 gm/ Dextrose IVPB 200 mls/hr Q8H-IV [facility] Administration Protocol Doxycycline Hyclate 100 mg/ 100 mls @ 100 mls/hr 05/15/19 11:30 05/15/19 15: 31 Dextrose IVPB 100 mls/hr BID [facility] Administration Ibuprofen 400 mg 05/14/19 16:30 05/15/19 03:33 Motrin - PO 400 mg Q8H PRN Administration FEVER Tacrolimus 2 mg 05/14/19 02:14 05/15/19 09:31 Prograf PO 2 mg BID [facility] Administration Valsartan 160 mg 05/14/19 10:00 05/15/19 09:31 Diovan - PO 160 mg DAILY [facility] Administration Constitutional: Yes: No Distress Eyes: Yes: Conjunctiva Clear HENT: Yes: Atraumatic Neck: Yes: Supple Cardiovascular: Yes: Regular Rate and Rhythm Respiratory: Yes: CTA Bilaterally Gastrointestinal Inspection: Yes: Scars (upper abdominal bucket handle incisions are healed) ...Auscultate: Yes: Normoactive Bowel Sounds ...Palpate: Yes: Soft, Other (nontender) ...Rectal Exam: Yes: Deferred (recently done in the office when he was g negative) Edema: No Neurological: Yes: Alert, Oriented Labs: CBC, BMP 05/15/19 04:13 05/15/19 04:13 INR, PTT INR 1.17 (0.83-1.09) H 05/13/19 21:05 Imaging - Results Cat Scan: Report Reviewed ( Final Report CT ABDOMEN & PELVIS CT W/O CONTR Show Printer-Friendly Version with Image (1 of 1) Show Printer- Friendly Version without images Patient Name: Mabel LandinFrancesco mejia : Oct-1945 ID: [id number] Study Date: 15-May-2019 01:48 Aime Riley Name: FRANCESCO BLANCO DEPARTMENT OF RADIOLOGY Phys: Evy Govea NP : 1945 Age: 73 Sex: M [facility] Acct: [id number] [facility] Exam Date: 05/15/19 Status: [place] [address] Unit Number: [id number] EXAM#: TYPE/EXAM: RESULT: CT/ABDOMEN PELVIS CT W/O CONTR CT abdomen and pelvis without intravenous contrast Clinical history: Abnormal CT chest 05/14/2019 at 1455 hours with possible small pneumoperitoneum Comparison studies: CT chest 05/14/2019 at 1455 hours Axial imaging completed with coronal and sagittal reformations, intravenous and oral contrast are not administered. History of liver transplant and cholecystectomy. Follow-up imaging demonstrates no evidence of free intraperitoneal air or bowel obstruction. No hernia. Nephrolithiasis left kidney without obstructive hydronephrosis. Atherosclerotic changes calcified aorta with no aneurysm or enlarged adenopathy. No ascites. No bowel wall thickening. Surgical clips are seen in the region of gallbladder fossa and along the margin of the left hepatic lobe where air in the biliary tree is noted likely related to prior surgery. Small right inguinal region hernia containing fat content only with no bowel content Stranding in the mesentery in the midline along the root of the mesentery and in the right lower quadrant mesenteric fat which can be seen with mesenteric right is, there are small reactive subcentimeter short axis lymph nodes seen with no large bulky chapo masses identified. No discrete abscess or drainable fluid collection is seen. Small bowel interposition between liver and diaphragm with no signs of bowel obstruction or bowel wall thickening. No evidence of colitis or diverticulitis with no free air or free fluid and no signs of appendicitis identified There is a 1.3 cm left midpole renal calculus with no hydronephrosis, no perinephric collection and no signs of stone in the ureter or bladder with no evidence of obstructive uropathy. Hypodense upper pole cyst up to 3 cm noted right kidney with Hounsfield density 8 consistent with simple fluid which should be confirmed, sonogram was performed 05/14/2019 at 1902 hours showing a 3.7 cm right renal lower pole simple cortical cyst. Impression : No CT evidence of free air. Status post liver transplant and cholecystectomy with air in the left biliary tree likely postsurgical in origin. Nonobstructive nephrolithiasis left kidney with no hydronephrosis Stranding in the root of the mesentery and right lower quadrant mesentery likely postinflammatory in origin with no enlarged lymph nodes or bulky chapo masses seen. No free air or free fluid with no signs of bowel obstruction or acute inflammatory changes in the abdomen and pelvis. Reported By : Martín You MD 05/15/19845 Technologist: Shalini Tran Transcribed Date/Time: 05/15/19845 Mixer Operator Vacuum Pan Salt: Martín You Printed Date/Time: By: Signed by: Martín You Signed on: May-2019 08:48) Problem List - Problems (1) Sepsis Assessment/Plan: Although his pneumobilia can be explained by having had a previous hepaticojejunostomy given his past h/o recurring cholangitis and lack of an obvious source this needs to be kept in mind. Given the complexity of ERCP with a hepaticojejunostomy I agree that he needs to be transferred to [facility]. Despite the negative echo given his recent dental extraction SBE remains a concern and he may require a BLANCA. Code(s): A41.9 - SEPSIS, UNSPECIFIED ORGANISM (2) Pneumobilia Code(s): K83.8 - OTHER SPECIFIED DISEASES OF BILIARY TRACT (3) RONALD (acute kidney injury) Code(s): N17.9 - ACUTE KIDNEY FAILURE, UNSPECIFIED (4) Calculus of kidney Code(s): N20.0 - CALCULUS OF KIDNEY (5) HTN (hypertension) Code(s): I10 - ESSENTIAL (PRIMARY) HYPERTENSION (6) Hepatitis B Code(s): B19.10 - UNSPECIFIED VIRAL HEPATITIS B WITHOUT HEPATIC COMA (7) S/P liver transplant Code(s): Z94.4 - LIVER TRANSPLANT STATUS (8) Systemic inflammatory response syndrome (SIRS) Code(s): R65.10 - SIRS OF NON-INFECTIOUS ORIGIN W/O ACUTE ORGAN DYSFUNCTION Assessment/Plan Assessment: - Although his pneumobilia can be explained by having had a previous hepaticojejunostomy given his past h/o recurring cholangitis and lack of an obvious source this needs to be kept in mind. Given the complexity of ERCP with a hepaticojejunostomy I agree that he needs to be transferred to [facility]. Despite the negative echo given his recent dental extraction SBE remains a concern and he may require a BLANCA. 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 - MRCP to exclude cholangitis due to biliary tract stone recurrence - Antibiotics as per Dr Reyes - Tacrolimus level pending - Reschedule colonoscopy when appropriate
[2019-05-16] MEDS ORDERED: DEXTROSE 5%-WATER 200 ML IVPB ONE (02:16)
[2019-05-16] MEDS ORDERED: PIPERACILLIN/TAZOBACTAM 4.5 GM VIAL IVPB ONE ×3 (02:16→17:32)
[2019-05-16] MEDS: PIPERACILLIN/TAZOB 4.5 GM 4.5 GM in DEXTROSE 5%-WATER 100 ML IVPB SCH ×3 (02:25→17:43)
[2019-05-16] MEDS: ACETAMINOPHEN 325 MG TABLET (FP) PO PRN (02:31)
[2019-05-16] MEDS ORDERED: FLUTICASONE PROP 0.05% 16 GM NASAL SPRAY NS ONE (03:51)
[2019-05-16 07:20] LABS: BASO % 0.4 % (0-2.0); EOS % 1.7 % (0-4.5); HEMATOCRIT 38.5 % (35.4-49); LYMPH % 10.1 % (8-40); MCH 31.9 pg (25.7-33.7); MCHC 33.8 g/dl (32.0-35.9); MEAN CELL VOLUME 94.5 fl (80-96); MEAN PLT VOLUME 10.1 fl (7.5-11.1); MONO % 9.8 % (3.8-10.2); PLATELET COUNT 73 K/MM3 (134-434); RBC 4.07 M/mm3 (4.00-5.60); RDW 14.1 % (11.9-15.9); WHITE BLOOD COUNT 6.9 K/mm3 (4.0-10.0)
[2019-05-16 07:52] LABS: ALBUMIN 2.8 g/dl (3.4-5.0); BILIRUBIN,TOTAL 1.2 mg/dL (0.2-1); BLOOD UREA NITROGEN 15.3 mg/dL (7-18); CALCIUM 8.1 mg/dL (8.5-10.1); CREATININE 1.4 mg/dL (0.55-1.3); POTASSIUM 4.3 mmol/L (3.5-5.1); TOT PROT 6.4 g/dl (6.4-8.2)
[2019-05-16] MEDS ORDERED: DEXTROSE 5%-WATER 100 ML IVPB ONE ×2 (09:54→17:32)
[2019-05-16] MEDS: VALSARTAN 160 MG TABLET (UD) PO SCH (09:55)
[2019-05-16] MEDS: TACROLIMUS ANHYDROUS 1 MG CAPSULE PO SCH ×2 (09:56→21:23)
[2019-05-16] MEDS: ENTECAVIR 0.5 MG TABLET PO SCH (09:57)
[2019-05-16] MEDS: VANCOMYCIN 1 GRAM (PRE-DOCKED) 1,000 MG/250 ML BAG IVPB SCH ×2 (10:01→14:54)
[2019-05-16] MEDS: HEPARIN NA (PORCINE) 5,000 UNITS/ML 1ML VIAL SQ SCH ×2 (10:02→21:23)
--- NOTE | 2019-05-16 11:30 | PN ---
Progress Note, Physician - Current Medication List Current Medications: Active Medications Acetaminophen (Tylenol -) 650 mg PO Q6H PRN PRN Reason: FEVER Last Admin: 05/16/19 02:31 Dose: 650 mg Entecavir (Baraclude -) 0.5 mg PO DAILY [facility] Last Admin: 05/16/19 09:57 Dose: 0.5 mg Heparin Sodium (Porcine) (Heparin -) 5,000 unit SQ BID [facility] Last Admin: 05/16/19 10:02 Dose: Not Given Vancomycin HCl (Vancomycin (Pre-Docked)) 1,000 mg in 250 mls @ 166.667 mls/hr IVPB Q12H [facility]; Protocol Last Admin: 05/15/19 22:32 Dose: 166.667 mls/hr Piperacillin Sod/Tazobactam (Sod 4.5 gm/ Dextrose) 100 mls @ 200 mls/hr IVPB Q8H-IV [facility]; Protocol Last Admin: 05/16/19 10:01 Dose: 200 mls/hr Doxycycline Hyclate 100 mg/ (Dextrose) 100 mls @ 100 mls/hr IVPB BID [facility] Last Admin: 05/15/19 21:10 Dose: 100 mls/hr Ibuprofen (Motrin -) 400 mg PO Q8H PRN PRN Reason: FEVER Last Admin: 05/15/19 03:33 Dose: 400 mg Tacrolimus (Prograf) 2 mg PO BID [facility] Last Admin: 05/16/19 09:56 Dose: 2 mg Valsartan (Diovan -) 160 mg PO DAILY [facility] Last Admin: 05/16/19 09:55 Dose: 160 mg - Objective Vital Signs: Vital Signs Temperature 98.7 F 05/16/19 09:30 Pulse Rate 76 05/16/19 09:30 Respiratory Rate 20 05/16/19 09:30 Blood Pressure 133/66 05/16/19 09:30 O2 Sat by Pulse Oximetry (%) 97 05/15/19 21:00 Cardiovascular: Yes: S1, S2 Respiratory: Yes: Regular, CTA Bilaterally Gastrointestinal: Yes: Normal Bowel Sounds, Soft. No: Tenderness Labs: CBC, BMP 05/16/19 06:15 05/16/19 06:15 INR, PTT INR 1.17 (0.83-1.09) H 05/13/19 21:05 Problem List - Problems (1) S/P liver transplant Assessment/Plan: Microbiology Code(s): Z94.4 - LIVER TRANSPLANT STATUS (2) Sepsis Assessment/Plan: IV ABX PER ID 05/15/19 04:13 Blood - Peripheral Venous Blood Culture - Preliminary Lactose Fermenting Neg Bacilli 05/15/19 04:13 Blood - Peripheral Venous Blood Culture - Preliminary Streptococcus Species 05/13/19 21:05 Blood - Peripheral Venous Blood Culture - Preliminary NO GROWTH OBTAINED AFTER 48 HOURS, INCUBATION TO CONTINUE FOR 3 DAYS. 05/13/19 21:05 Blood - Peripheral Venous Blood Culture - Preliminary NO GROWTH OBTAINED AFTER 48 HOURS, INCUBATION TO CONTINUE FOR 3 DAYS. 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
[2019-05-16] MEDS: DOXYCYCLINE INJECTION 100 MG in DEXTROSE 5%-WATER - 100 ML IVPB SCH (11:45)
--- NOTE | 2019-05-16 11:50 | PN ---
Progress Note (short form) - Note Progress Note: no chills yesterday, still low grade fever overnight (took tylenol) no complaints noted GI consult noted history of hepatico jejunostomy 10 years ago at [facility] pending blood cultures now with strep and GNR Vital Signs Period Temp Pulse Resp BP Sys/Gibbons Pulse Ox Last 24 Hr 98.1 F-100.1 F 75-101 18-20 118-155/64-85 97 cor-rrr lungs clear abd soft,nt ext no edema CBC, BMP 05/16/19 06:15 05/16/19 06:15 Microbiology 05/15/19 04:13 Blood - Peripheral Venous Blood Culture - Preliminary Lactose Fermenting Neg Bacilli 05/15/19 04:13 Blood - Peripheral Venous Blood Culture - Preliminary Streptococcus Species 05/13/19 21:05 Blood - Peripheral Venous Blood Culture - Preliminary NO GROWTH OBTAINED AFTER 48 HOURS, INCUBATION TO CONTINUE FOR 3 DAYS. 05/13/19 21:05 Blood - Peripheral Venous Blood Culture - Preliminary NO GROWTH OBTAINED AFTER 48 HOURS, INCUBATION TO CONTINUE FOR 3 DAYS. 05/13/19 23:30 Urine - Urine Clean Catch Urine Culture - Final NO GROWTH OBTAINED 05/14/19 19:30 Blood - Peripheral Venous Blood Parasites Smear - Final a/p polymicrobial bacteremia- Suspect GI in origin s/p liver transplant for MRI agree with transfer to tertiary care center continue vancomycin and zosyn d/c doxycycline vancomycin trough pending repeat blood cultures d/w Dr Taylor d/w Dr Valderrama who will reach out to [facility] pending d/w family at bedside
--- NOTE | 2019-05-16 12:44 | PN ---
Progress Note (short form) - Note Progress Note: RENAL Pt is awake and alert comfortable has elevated creatinine but suuspects its not new urinates without problems Last Vital Signs Temp Pulse Resp BP Pulse Ox 98.7 F 76 20 133/66 97 05/16/19 09:30 05/16/19 09:30 05/16/19 09:30 05/16/19 09:30 05/15/19 21:00 lungs clear cvs s1s2 rr abd soft ext no edema neuro a+ox3 CBC, BMP 05/16/19 06:15 05/16/19 06:15 Current Medications Generic Name Dose Route Start Last Admin Trade Name Freq PRN Reason Stop Dose Admin Acetaminophen 650 mg 05/15/19 17:00 05/16/19 02:31 Tylenol - PO 650 mg Q6H PRN Administration FEVER Entecavir 0.5 mg 05/14/19 10:00 05/16/19 09:57 Baraclude - PO 0.5 mg DAILY RICH Administration Heparin Sodium (Porcine) 5,000 unit 05/14/19 10:00 05/16/19 10:02 Heparin - SQ Not Given BID RICH Vancomycin HCl 1,000 mg in 250 mls @ 166.667 mls/hr 05/14/19 22:00 05/15/19 22:32 Vancomycin (Pre-Docked) IVPB 166.667 mls/hr Q12H RICH Administration Protocol Piperacillin Sod/Tazobactam 100 mls @ 200 mls/hr 05/14/19 18:00 05/16/19 10: 01 Sod 4.5 gm/ Dextrose IVPB 200 mls/hr Q8H-IV RICH Administration Protocol Ibuprofen 400 mg 05/14/19 16:30 05/15/19 03:33 Motrin - PO 400 mg Q8H PRN Administration FEVER Tacrolimus 2 mg 05/14/19 02:14 05/16/19 09:56 Prograf PO 2 mg BID RICH Administration Valsartan 160 mg 05/14/19 10:00 05/16/19 09:55 Diovan - PO 160 mg DAILY RICH Administration Impression 1. 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 liver transplant done 20 years ago and 1 week! 3. htn 4. 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 fever 6. nephrolithiasis 7. cultures reveal lactose fermenting bacteria and strep series- ID believes GI source Plan -antibiotics per ID - monitor renal function - vanco trough and tacrolimus trough - transfer to tertiary care center - ID and GI notes read and appreciated MV
[2019-05-16] MEDS ORDERED: VANCOMYCIN 1 GRAM (PRE-DOCKED) 1,000 MG/250 ML BAG IVPB SCH (13:30)
--- NOTE | 2019-05-16 16:53 | PN.GI ---
GI Progress Note Subjective: GI Note: Lactose fermenting gm neg santa and enterococcus or group D strep growing in the blood. MRCP still pending. Denies chills and fevers are less intense. No biliary colic. Tolerating diet - Objective Vital Signs: Vital Signs Temperature 99.6 F 05/16/19 15:26 Pulse Rate 100 H 05/16/19 15:26 Respiratory Rate 20 05/16/19 15:26 Blood Pressure 151/74 05/16/19 15:26 O2 Sat by Pulse Oximetry (%) 97 05/16/19 09:00 Laboratory Tests 05/13/19 05/15/19 05/16/19 21:05 04:13 06:15 Total Bilirubin 0.8 1.2 H 1.2 H AST 18 20 22 ALT 36 34 39 Alkaline Phosphatase 139 H 122 H 125 H Total Amylase 41 Lipase 234 Tumor Marker AFP 05/16/19 06:15 Total Bilirubin AST ALT Alkaline Phosphatase Total Amylase Lipase Tumor Marker AFP Pending Constitutional: Calm ...Auscultate: Yes: Normoactive Bowel Sounds ...Palpate: Yes: Tenderness, Rebound, Other (nontender) Labs: CBC, BMP 05/16/19 06:15 05/16/19 06:15 INR, PTT INR 1.17 (0.83-1.09) H 05/13/19 21:05 Assessment/Plan Assessment: - Although his pneumobilia can be explained by having had a previous hepaticojejunostomy given his past h/o recurring cholangitis and lack of an obvious source this needs to be kept in mind. Given the complexity of ERCP with a hepaticojejunostomy I agree that he needs to be transferred to [facility]. Despite the negative echo given his recent dental extraction SBE remains a concern and he may require a BLANCA. 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 - Await MRCP to exclude cholangitis due to biliary tract stone recurrence - Tacrolimus level pending - Reschedule colonoscopy when appropriate. He could have a colon source for this bacteremia ie. neoplasm Problem List - Problems (1) Sepsis Code(s): A41.9 - SEPSIS, UNSPECIFIED ORGANISM (2) Pneumobilia Code(s): K83.8 - OTHER SPECIFIED DISEASES OF BILIARY TRACT (3) RONALD (acute kidney injury) Code(s): N17.9 - ACUTE KIDNEY FAILURE, UNSPECIFIED (4) Calculus of kidney Code(s): N20.0 - CALCULUS OF KIDNEY (5) HTN (hypertension) Code(s): I10 - ESSENTIAL (PRIMARY) HYPERTENSION (6) Hepatitis B Code(s): B19.10 - UNSPECIFIED VIRAL HEPATITIS B WITHOUT HEPATIC COMA (7) S/P liver transplant Code(s): Z94.4 - LIVER TRANSPLANT STATUS (8) Systemic inflammatory response syndrome (SIRS) Code(s): R65.10 - SIRS OF NON-INFECTIOUS ORIGIN W/O ACUTE ORGAN DYSFUNCTION
[2019-05-16] MEDS: IBUPROFEN 400 MG TABLET (FP) PO PRN (21:21)
[2019-05-17 00:09] VITALS: PULSE 86
[2019-05-17] MEDS ORDERED: VANCOMYCIN 1,250 MG in DEXTROSE 5%-WATER - 250 ML IVPB SCH (01:30)
[2019-05-17] MEDS ORDERED: DEXTROSE 5%-WATER 100 ML IVPB ONE (02:43)
[2019-05-17] MEDS ORDERED: PIPERACILLIN/TAZOBACTAM 4.5 GM VIAL IVPB ONE (02:43)
[2019-05-17] MEDS: PIPERACILLIN/TAZOB 4.5 GM 4.5 GM in DEXTROSE 5%-WATER 100 ML IVPB SCH (02:53)
[2019-05-17 03:07] VITALS: BP 133/56; TEMP 98
--- NOTE | 2019-05-18 15:59 | EKG ---
Test Reason : Blood Pressure : / mmHG Vent. Rate : 116 BPM Atrial Rate : 116 BPM P-R Int : 118 ms QRS Dur : 078 ms QT Int : 296 ms P-R-T Axes : 045 049 036 degrees QTc Int : 411 ms SINUS TACHYCARDIA WITH PREMATURE ATRIAL COMPLEXES OTHERWISE NORMAL ECG WHEN COMPARED WITH ECG OF 13-MAY-2019 19:54, NO SIGNIFICANT CHANGE WAS FOUND Confirmed by STEPHANIE NAVARRO MD ([id number]) on 05/18/2019 3:59:16 PM Referred By: Confirmed By:STEPHANIE NAVARRO MD
== END 2019-05-17 03:00 | disposition short-term general hospital (02) | DRG 872 ==
LOC: JER 19:46 → JERBED 23:16 → J7W 05-14 02:57
PROVIDERS: ADMIT Family Medicine; ATTEND Family Medicine
DX: A41.9 Sepsis, unspecified organism (principal); Z94.4 Liver transplant status; B19.10 Unspecified viral hepatitis B without hepatic coma; N17.9 Acute kidney failure, unspecified; K83.09 Other cholangitis; R79.89 Other specified abnormal findings of blood chemistry; D72.829 Elevated white blood cell count, unspecified; N20.0 Calculus of kidney; E66.9 Obesity, unspecified; K83.8 Other specified diseases of biliary tract; D72.828 Other elevated white blood cell count; D69.6 Thrombocytopenia, unspecified; N28.1 Cyst of kidney, acquired; R50.9 Fever, unspecified; I12.9 Hypertensive chronic kidney disease with stage 1 through stage 4 chronic kidney disease, or unspecified chronic kidney disease; N18.9 Chronic kidney disease, unspecified
CPT/HCPCS: 36415; 71045-TC-FY; 71250-TC; 74176-TC; 76775-TC; 80048; 80053; 80197; 81003; 82105; 82150; 82436; 82565; 82803; 82930; 83010; 83605; 83615; 83690; 84133; 84300; 84484; 85025; 85610; 85651; 85730; 86140; 86618; 87040; 87086; 87186; 87207; 87804; 93005; 93010; 93306-TC; 99283-25; G0480; J0131; J1644; J7030

== ENCOUNTER 2020-07-29 04:43 | Day surgery (SDC) | payer OTHER ==
[2020-07-27 14:31] VITALS: BMI 31.1
[2020-07-29 08:52] VITALS: TEMP 97.8
[2020-07-29 10:05] VITALS: BP 115/62; PULSE 74
== END 2020-07-29 10:16 | disposition home or self-care (01) ==
LOC: JASU-ENDO 04:43
PROVIDERS: ATTEND Internal Medicine Gastroenterology
PROC: 0DBL8ZX Excision of Transverse Colon, Via Natural or Artificial Opening Endoscopic, Diagnostic (ICD-10-PCS; 2020-07-29)
PROC: 0DBP8ZX Excision of Rectum, Via Natural or Artificial Opening Endoscopic, Diagnostic (ICD-10-PCS; principal; 2020-07-29 09:00)
DX: Z12.11 Encounter for screening for malignant neoplasm of colon (principal); Z86.010 Personal history of colon polyps; K62.1 Rectal polyp; D12.3 Benign neoplasm of transverse colon
CPT/HCPCS: 88305-TC

== ENCOUNTER 2020-11-07 20:24 | Inpatient (IN) | payer OTHER ==
[2020-11-07 21:49] LABS: BASO % 0.6 % (0-2.0); EOS % 4.1 % (0-4.5); HEMATOCRIT 44.1 % (35.4-49); LYMPH % 28.6 % (8-40); MCH 31.5 pg (25.7-33.7); MEAN CELL VOLUME 92.5 fl (80-96); MONO % 6.7 % (3.8-10.2); PLATELET COUNT 98 K/MM3 (134-434); RBC 4.77 M/mm3 (4.00-5.60); RDW 13.8 % (11.9-15.9); WHITE BLOOD COUNT 8.4 K/mm3 (4.0-10.0)
[2020-11-07 21:58] LABS: INR 1.11 (0.83-1.09); PROTHROMBIN TIME (PATIENT) 13.4 SEC (9.7-13.0)
[2020-11-07 22:01] LABS: ACTIVATED PTT 31.2 SECONDS (25.2-36.5)
[2020-11-07 22:12] LABS: POTASSIUM 4.6 mmol/L (3.5-5.1)
[2020-11-07 22:14] LABS: ALBUMIN 3.8 g/dl (3.4-5.0); CALCIUM 8.4 mg/dL (8.5-10.1)
[2020-11-07 22:18] LABS: CREATININE 1.4 mg/dL (0.55-1.3)
[2020-11-07 22:19] LABS: BILIRUBIN,TOTAL 0.4 mg/dL (0.2-1); TOT PROT 8.1 g/dl (6.4-8.2)
[2020-11-07 22:23] LABS: N-TERMINAL BNP 142.5 pg/ml (5-125)
[2020-11-08] MEDS ORDERED: HEPARIN NA (PORCINE) 5,000 UNITS/ML 1ML VIAL IVPUSH ONE (01:24)
[2020-11-08] MEDS ORDERED: HEPARIN INFUSION - 25,000 UNITS/500 ML INFUS.BAG IVPB ONE ×2 (01:32→14:52)
[2020-11-08] MEDS ORDERED: HEPARIN NA (PORCINE) 5,000 UNITS/ML 1ML VIAL ONE (01:33)
[2020-11-08] MEDS ORDERED: HEPARIN NA (PORCINE) 5,000 UNITS/ML 1ML VIAL IVPUSH PRN ×2 (01:36)
[2020-11-08] MEDS: HEPARIN - 25,000 UNIT in SODIUM CHLORIDE 495 ML IV SCH (02:09)
[2020-11-08] MEDS ORDERED: LORazepam 1 MG TABLET PO ONE (06:15)
[2020-11-08] MEDS: POTASSIUM CHLORIDE 10 MEQ in SODIUM CHLORIDE 0.45% 1,000 ML IVPB SCH ×2 (09:52→22:18)
[2020-11-08] MEDS: TACROLIMUS ANHYDROUS 1 MG CAPSULE PO SCH ×2 (09:53→22:18)
[2020-11-08] MEDS: ENTECAVIR 0.5 MG TABLET PO SCH (09:53)
[2020-11-08 16:20] VITALS: BMI 31.7
[2020-11-08] MEDS ORDERED: PT OWN MED DRAWER 7, Y5N ONE (20:30)
[2020-11-08] MEDS ORDERED: LOSARTAN POTASSIUM 50 MG TABLET PO ONE (23:41)
[2020-11-09] MEDS: POTASSIUM CHLORIDE 10 MEQ in SODIUM CHLORIDE 0.45% 1,000 ML IVPB SCH ×2 (02:07→02:09)
[2020-11-09] MEDS: HEPARIN - 25,000 UNIT in SODIUM CHLORIDE 495 ML IV SCH (05:28)
[2020-11-09] MEDS ORDERED: PT OWN MED DRAWER 7, Y5N ONE (10:35)
[2020-11-09] MEDS: ENTECAVIR 0.5 MG TABLET PO SCH (10:40)
[2020-11-09] MEDS: LOSARTAN POTASSIUM 50 MG TABLET PO SCH (10:40)
[2020-11-09] MEDS: TACROLIMUS ANHYDROUS 1 MG CAPSULE PO SCH ×2 (10:40→22:36)
[2020-11-10] MEDS: HEPARIN - 25,000 UNIT in SODIUM CHLORIDE 495 ML IV SCH (01:15)
[2020-11-10] MEDS ORDERED: POTASSIUM CHLORIDE 10 MEQ in SODIUM CHLORIDE 0.45% 1,000 ML IVPB SCH (05:59)
[2020-11-10 08:47] LABS: HEMATOCRIT 44.4 % (35.4-49); HEMOGLOBIN 15.3 GM/dL (11.7-16.9); MCH 31.8 pg (25.7-33.7); MCHC 34.4 g/dl (32.0-35.9); MEAN CELL VOLUME 92.5 fl (80-96); MEAN PLT VOLUME 10.2 fl (7.5-11.1); PLATELET COUNT 99 K/MM3 (134-434); WHITE BLOOD COUNT 6.3 K/mm3 (4.0-10.0)
[2020-11-10 09:05] LABS: POTASSIUM 4.4 mmol/L (3.5-5.1)
[2020-11-10 09:19] LABS: CALCIUM 8.3 mg/dL (8.5-10.1)
[2020-11-10 09:20] LABS: ALBUMIN 3.6 g/dl (3.4-5.0); BLOOD UREA NITROGEN 14.6 mg/dL (7-18)
[2020-11-10 09:23] LABS: CREATININE 1.2 mg/dL (0.55-1.3)
[2020-11-10 09:26] LABS: BILIRUBIN,TOTAL 0.8 mg/dL (0.2-1)
[2020-11-10 09:28] LABS: TOT PROT 7.4 g/dl (6.4-8.2)
[2020-11-10] MEDS ORDERED: PT OWN MED DRAWER 7, Y5N ONE (09:57)
[2020-11-10] MEDS: TACROLIMUS ANHYDROUS 1 MG CAPSULE PO SCH (10:00)
[2020-11-10] MEDS: LOSARTAN POTASSIUM 50 MG TABLET PO SCH (10:01)
[2020-11-10] MEDS: ENTECAVIR 0.5 MG TABLET PO SCH (10:01)
[2020-11-10] MEDS ORDERED: APIXABAN 5 MG TABLET PO SCH (13:30)
[2020-11-10 15:11] VITALS: BP 156/67; PULSE 66; TEMP 98.1
== END 2020-11-10 18:41 | disposition home or self-care (01) | DRG 176 ==
LOC: JER 20:24 → JERBED 11-08 01:48 → J8W 11-08 15:51
PROVIDERS: ADMIT Internal Medicine; ATTEND Family Medicine
DX: I26.99 Other pulmonary embolism without acute cor pulmonale (principal); Z94.4 Liver transplant status; I82.4Z1 Acute embolism and thrombosis of unspecified deep veins of right distal lower extremity; B19.10 Unspecified viral hepatitis B without hepatic coma; N17.9 Acute kidney failure, unspecified; I10 Essential (primary) hypertension
CPT/HCPCS: 36415; 71275-TC; 80053; 83880; 84484; 85025; 85027; 85379; 85610; 85730; 86769; 93005; 93010; 93306-TC; 93970-TC; 99285-25; C9803; J1644; U0003

== ENCOUNTER 2021-09-12 16:32 | Emergency (ER) | payer OTHER ==
[2021-09-12 16:43] VITALS: BMI 30.9
[2021-09-12] MEDS ORDERED: SOTROVIMAB 500 MG in SODIUM CHLORIDE 100 ML IVPB ONE (17:40)
[2021-09-12 19:33] VITALS: BP 129/76; PULSE 87; TEMP 98.3
== END 2021-09-12 19:56 | disposition home or self-care (01) ==
LOC: JCOVINFU 16:32
DX: Z11.52 Encounter for screening for COVID-19 (principal)
CPT/HCPCS: 99284-25; M0247; Q0247

== ENCOUNTER 2021-12-17 18:22 | Observation (INO) | payer OTHER ==
[2021-12-17 18:36] VITALS: BMI 31.3
[2021-12-17] MEDS ORDERED: ADENOSINE 6 MG/2 ML VIAL IVPUSH ONE ×2 (19:40→19:43)
[2021-12-17] MEDS ORDERED: SODIUM CHLORIDE 0.9% 500 ML INFUS.BAG IV ONE (19:45)
[2021-12-17] MEDS ORDERED: APIXABAN 5 MG TABLET PO ONE (20:01)
[2021-12-17] MEDS ORDERED: METOPROLOL TARTRATE 25 MG TABLET (FP) PO ONE (20:03)
[2021-12-17] MEDS ORDERED: METOPROLOL TARTRATE 25 MG TABLET (FP) ONE (20:07)
[2021-12-17] MEDS ORDERED: APIXABAN 5 MG TABLET ONE (20:08)
[2021-12-17 20:12] LABS: BASO % 0.8 % (0-2.0); HEMATOCRIT 46.5 % (35.4-49); HEMOGLOBIN 16.2 GM/dL (11.7-16.9); LYMPH % 23.5 % (8-40); MCH 31.5 pg (25.7-33.7); MCHC 34.8 g/dl (32.0-35.9); MEAN CELL VOLUME 90.5 fl (80-96); MONO % 8.1 % (3.8-10.2); NEUT % 64.6 % (42.8-82.8); PLATELET COUNT 106 10^3/uL (134-434); RBC 5.14 M/mm3 (4.00-5.60); RDW 14.3 % (11.9-15.9); WHITE BLOOD COUNT 6.4 K/mm3 (4.0-10.0)
[2021-12-17 20:13] LABS: INR 1.08 (0.83-1.09); PROTHROMBIN TIME (PATIENT) 12.4 SEC (9.7-13.0)
[2021-12-17 20:15] LABS: ACTIVATED PTT 27.1 SECONDS (25.2-36.5)
[2021-12-17 20:29] LABS: ALBUMIN 3.7 g/dl (3.4-5.0); BLOOD UREA NITROGEN 24.1 mg/dL (7-18); CALCIUM 8.3 mg/dL (8.5-10.1)
[2021-12-17 20:32] LABS: CREATININE 1.4 mg/dL (0.55-1.3)
[2021-12-17 20:34] LABS: BILIRUBIN,TOTAL 0.5 mg/dL (0.2-1); TOT PROT 7.8 g/dl (6.4-8.2)
[2021-12-17] MEDS: TACROLIMUS ANHYDROUS 1 MG CAPSULE PO SCH (23:35)
[2021-12-18] MEDS ORDERED: LOSARTAN POTASSIUM 50 MG TABLET ONE (07:48)
[2021-12-18] MEDS ORDERED: APIXABAN 5 MG TABLET ONE (07:48)
[2021-12-18] MEDS ORDERED: METOPROLOL TARTRATE 25 MG TABLET (FP) ONE (07:48)
[2021-12-18] MEDS: ENTECAVIR 0.5 MG TABLET PO SCH (09:00)
[2021-12-18] MEDS: TACROLIMUS ANHYDROUS 1 MG CAPSULE PO SCH ×2 (09:29→21:12)
[2021-12-18] MEDS: APIXABAN 5 MG TABLET PO SCH ×2 (09:40→21:08)
[2021-12-18] MEDS: LOSARTAN POTASSIUM 50 MG TABLET PO SCH (09:40)
[2021-12-18] MEDS ORDERED: METOPROLOL TARTRATE 25 MG TABLET (FP) PO SCH (10:00)
[2021-12-18] MEDS ORDERED: metoPROLOL SUCCINATE 25 MG TAB.SR.24H (FP) PO ONE (15:00)
[2021-12-19 06:58] LABS: CALCIUM 8.2 mg/dL (8.5-10.1)
[2021-12-19 06:59] LABS: BLOOD UREA NITROGEN 27.6 mg/dL (7-18)
[2021-12-19 07:02] LABS: CREATININE 1.3 mg/dL (0.55-1.3)
[2021-12-19] MEDS ORDERED: REGADENOSON 0.4 MG/5 ML PRE-FILLED SYRINGE IVPUSH ONE ×2 (10:21→10:30)
[2021-12-19] MEDS: TACROLIMUS ANHYDROUS 1 MG CAPSULE PO SCH ×2 (12:57→21:55)
[2021-12-19] MEDS: LOSARTAN POTASSIUM 50 MG TABLET PO SCH (12:57)
[2021-12-19] MEDS: APIXABAN 5 MG TABLET PO SCH ×2 (12:57→21:55)
[2021-12-19] MEDS: ENTECAVIR 0.5 MG TABLET PO SCH (12:57)
[2021-12-19] MEDS: ASPIRIN 81 MG CHEWABLE TABLETS PO SCH (18:15)
[2021-12-19] MEDS ORDERED: ATORVASTATIN CA 40 MG TABLET (FP) PO SCH (22:00)
[2021-12-20 06:31] VITALS: TEMP 98
[2021-12-20] MEDS: APIXABAN 5 MG TABLET PO SCH (09:20)
[2021-12-20] MEDS: ASPIRIN 81 MG CHEWABLE TABLETS PO SCH (09:20)
[2021-12-20] MEDS: LOSARTAN POTASSIUM 50 MG TABLET PO SCH (09:20)
[2021-12-20] MEDS: TACROLIMUS ANHYDROUS 1 MG CAPSULE PO SCH (09:21)
[2021-12-20] MEDS: ENTECAVIR 0.5 MG TABLET PO SCH (11:40)
[2021-12-20 11:43] VITALS: BP 140/86; PULSE 63
== END 2021-12-20 11:45 | disposition home or self-care (01) ==
LOC: JER 18:22 → JERBED 20:44 → J2W 12-18 18:17
PROVIDERS: ADMIT Internal Medicine; ATTEND Family Medicine
PROC: 3E033GC Introduction of Other Therapeutic Substance into Peripheral Vein, Percutaneous Approach (ICD-10-PCS; principal; 2021-12-17)
PROC: 3E0337Z Introduction of Electrolytic and Water Balance Substance into Peripheral Vein, Percutaneous Approach (ICD-10-PCS; 2021-12-17)
DX: I48.4 Atypical atrial flutter (principal); N17.9 Acute kidney failure, unspecified; E66.9 Obesity, unspecified; Z68.31 Body mass index [BMI] 31.0-31.9, adult; B19.20 Unspecified viral hepatitis C without hepatic coma; I10 Essential (primary) hypertension; Z94.4 Liver transplant status; Z86.718 Personal history of other venous thrombosis and embolism; Z86.711 Personal history of pulmonary embolism; Z20.822 Contact with and (suspected) exposure to COVID-19
CPT/HCPCS: 36415; 71045-TC-FY; 78452-TC; 80048; 80053; 83735; 84439; 84443; 84484; 85025; 85610; 85730; 93005; 93010; 93017; 93306-TC; 93970-TC; 96374; 99285-25; A9502; C9803-CS; G0378; J2785; U0003; U0005

== ENCOUNTER 2023-10-21 02:39 | Observation (INO) | payer OTHER ==
[2023-10-21] MEDS ORDERED: ACETAMINOPHEN INJECTION 100 ML IVPB ONE (04:39)
[2023-10-21] MEDS ORDERED: FAMOTIDINE 20 MG/50 ML IVPB 20 MG/50 ML MG IVPB ONE (04:40)
[2023-10-21] MEDS ORDERED: ONDANSETRON 4 MG/2 ML VIAL ONE (04:40)
[2023-10-21] MEDS: ACETAMINOPHEN 1000 MG/100 ML BAG IVPB ONE (05:14)
[2023-10-21] MEDS: SODIUM CHLORIDE 0.9% 500 ML INFUS.BAG IV ONE (05:14)
[2023-10-21] MEDS: ONDANSETRON 4 MG/2 ML VIAL IVPUSH ONE (05:15)
[2023-10-21] MEDS: FAMOTIDINE 20 MG/50 ML IVPB 20 MG/50 ML MG IVPB ONE (05:15)
[2023-10-21 05:54] LABS: HEMATOCRIT 52.9 % (35.4-49); HEMOGLOBIN 17.3 GM/dL (11.7-16.9); MCH 30.9 pg (25.7-33.7); MCHC 32.7 g/dl (32.0-35.9); MEAN CELL VOLUME 94.6 fl (80-96); MEAN PLT VOLUME 9.9 fl (7.5-11.1); PLATELET COUNT 121 10^3/uL (134-434); RBC 5.59 M/mm3 (4.00-5.60); RDW 14.9 % (11.9-15.9)
[2023-10-21 06:10] LABS: POTASSIUM 5.6 mmol/L (3.5-5.1)
[2023-10-21 06:13] LABS: ALBUMIN 3.9 g/dl (3.4-5.0); CALCIUM 9.1 mg/dL (8.5-10.1); MAGNESIUM 1.8 mg/dL (1.8-2.4)
[2023-10-21 06:14] LABS: BLOOD UREA NITROGEN 40.1 mg/dL (7-18); INR 1.26 (0.83-1.09); PROTHROMBIN TIME (PATIENT) 14.6 SEC (9.7-13.0)
[2023-10-21 06:16] LABS: ACTIVATED PTT 25.9 SECONDS (25.2-36.5); CREATININE 1.7 mg/dL (0.55-1.3)
[2023-10-21 06:18] LABS: BILIRUBIN,TOTAL 1.1 mg/dL (0.2-1); TOT PROT 8.6 g/dl (6.4-8.2)
[2023-10-21 06:37] LABS: LACTIC ACID 2.3 mmol/L (0.4-2.0)
[2023-10-21 08:46] LABS: ANISOCYTOSIS 0; MACROCYTOSIS 0
[2023-10-21] MEDS: DEXTROSE 5%-NORMAL SALINE 1,000 ML IV SCH (09:43)
[2023-10-21] MEDS ORDERED: PANTOPRAZOLE 40 MG TABLET PO ONE (10:04)
[2023-10-21] MEDS: PANTOPRAZOLE 40 MG TABLET PO SCH (10:05)
[2023-10-21] MEDS: TACROLIMUS ANHYDROUS 1 MG CAPSULE PO SCH (11:24)
[2023-10-21 14:27] VITALS: RESP 20; BMI 16.5
[2023-10-21 15:52] LABS: HEMATOCRIT 46.4 % (35.4-49); HEMOGLOBIN 15.3 GM/dL (11.7-16.9); MCH 31.1 pg (25.7-33.7); MEAN CELL VOLUME 94.2 fl (80-96); MEAN PLT VOLUME 9.9 fl (7.5-11.1); PLATELET COUNT 101 10^3/uL (134-434); RBC 4.92 M/mm3 (4.00-5.60); RDW 14.6 % (11.9-15.9); WHITE BLOOD COUNT 6.9 K/mm3 (4.0-10.0)
[2023-10-21 16:48] LABS: POTASSIUM 4.6 mmol/L (3.5-5.1)
[2023-10-21 16:50] LABS: ALBUMIN 3.3 g/dl (3.4-5.0); BLOOD UREA NITROGEN 41.8 mg/dL (7-18)
[2023-10-21 16:53] LABS: CREATININE 1.8 mg/dL (0.55-1.3)
[2023-10-21 16:55] LABS: BILIRUBIN,TOTAL 0.8 mg/dL (0.2-1); TOT PROT 6.9 g/dl (6.4-8.2)
[2023-10-21 17:05] LABS: CALCIUM 7.7 mg/dL (8.5-10.1)
[2023-10-21] MEDS: SODIUM ZIRCONIUM CYCLOSILICATE (LOKELMA) 5 GM PACKET PO SCH ×2 (18:05→18:06)
[2023-10-22 11:31] LABS: POTASSIUM 4.2 mmol/L (3.5-5.1)
[2023-10-22 11:35] LABS: CALCIUM 7.3 mg/dL (8.5-10.1)
[2023-10-22 11:36] LABS: ALBUMIN 2.8 g/dl (3.4-5.0); BLOOD UREA NITROGEN 26.4 mg/dL (7-18)
[2023-10-22 11:39] LABS: CREATININE 1.5 mg/dL (0.55-1.3)
[2023-10-22 11:41] LABS: BILIRUBIN,TOTAL 0.5 mg/dL (0.2-1); TOT PROT 6.2 g/dl (6.4-8.2)
[2023-10-22 13:02] VITALS: BP 119/78; PULSE 88; TEMP 98.1
== END 2023-10-22 13:05 | disposition home or self-care (01) ==
LOC: JER 02:39 → JERBED 06:56 → J8W 14:04
PROVIDERS: ADMIT Family Medicine; ATTEND Family Medicine
PROC: 3E033GC Introduction of Other Therapeutic Substance into Peripheral Vein, Percutaneous Approach (ICD-10-PCS; principal; 2023-10-21)
PROC: 3E0337Z Introduction of Electrolytic and Water Balance Substance into Peripheral Vein, Percutaneous Approach (ICD-10-PCS; 2023-10-21)
PROC: 3E033NZ Introduction of Analgesics, Hypnotics, Sedatives into Peripheral Vein, Percutaneous Approach (ICD-10-PCS; 2023-10-21)
DX: K52.9 Noninfective gastroenteritis and colitis, unspecified (principal); N20.0 Calculus of kidney; I48.91 Unspecified atrial fibrillation; R11.10 Vomiting, unspecified; Z79.01 Long term (current) use of anticoagulants; Z94.4 Liver transplant status; Z86.19 Personal history of other infectious and parasitic diseases; I10 Essential (primary) hypertension; Z86.718 Personal history of other venous thrombosis and embolism; Z86.711 Personal history of pulmonary embolism; E87.5 Hyperkalemia; R07.9 Chest pain, unspecified; R11.0 Nausea; K83.09 Other cholangitis; K74.60 Unspecified cirrhosis of liver; M10.9 Gout, unspecified; K80.20 Calculus of gallbladder without cholecystitis without obstruction; B19.10 Unspecified viral hepatitis B without hepatic coma; N17.9 Acute kidney failure, unspecified
CPT/HCPCS: 0241U-QW; 36415; 71045-TC-FY; 74176-TC; 80053; 83605; 83690; 83735; 84484; 85025; 85027; 85610; 85730; 87040; 87045; 87046; 93005; 93010; 96365; 96375; 99285-25; G0378; J0131

== ENCOUNTER 2024-07-14 08:12 | Emergency (ER) | payer OTHER ==
[2024-07-14 08:21] VITALS: BP 127/77; PULSE 138; RESP 18; TEMP 97.6; BMI 29.0
[2024-07-14 09:34] LABS: INR 1.05 (0.83-1.09); PROTHROMBIN TIME (PATIENT) 11.9 SEC (9.7-13.0)
[2024-07-14 09:37] LABS: ACTIVATED PTT 32.5 SECONDS (25.2-36.5)
[2024-07-14 09:38] LABS: BASO % 0.7 % (0-2.0); EOS % 6.6 % (0-4.5); HEMATOCRIT 41.3 % (35.4-49); HEMOGLOBIN 13.8 GM/dL (11.7-16.9); LYMPH % 25.1 % (8-40); MCH 31.7 pg (25.7-33.7); MCHC 33.4 g/dl (32.0-35.9); MEAN CELL VOLUME 95.1 fl (80-96); MEAN PLT VOLUME 9.2 fl (7.5-11.1); MONO % 7.5 % (3.8-10.2); NEUT % 60.1 % (42.8-82.8); PLATELET COUNT 122 10^3/uL (134-434); RBC 4.34 M/mm3 (4.00-5.60); RDW 14.2 % (11.9-15.9); WHITE BLOOD COUNT 6.3 K/mm3 (4.0-10.0)
[2024-07-14 09:55] LABS: POTASSIUM 4.6 mmol/L (3.5-5.1)
[2024-07-14 09:58] LABS: ALBUMIN 3.3 g/dl (3.4-5.0); BLOOD UREA NITROGEN 21.2 mg/dL (7-18); CALCIUM 8.3 mg/dL (8.5-10.1); MAGNESIUM 1.5 mg/dL (1.8-2.4)
[2024-07-14 10:01] LABS: CREATININE 1.2 mg/dL (0.55-1.3); PHOSPHOROUS 3.3 mg/dL (2.5-4.9)
[2024-07-14 10:02] LABS: BILIRUBIN,TOTAL 0.5 mg/dL (0.2-1)
[2024-07-14 10:03] LABS: TOT PROT 6.8 g/dl (6.4-8.2)
[2024-07-14 10:06] LABS: N-TERMINAL BNP 308.7 pg/ml (5-450)
[2024-07-14] MEDS ORDERED: MAGNESIUM OXIDE 400 MG TABLET (FP) ONE (10:13)
[2024-07-14] MEDS ORDERED: AZITHROMYCIN 500 MG TABLET ONE (10:13)
[2024-07-14] MEDS ORDERED: APIXABAN 5 MG TABLET ONE (10:13)
[2024-07-14] MEDS: AZITHROMYCIN 250 MG TABLET PO ONE (10:19)
[2024-07-14] MEDS: APIXABAN 5 MG TABLET PO ONE (10:19)
[2024-07-14] MEDS: MAGNESIUM OXIDE 400 MG TABLET (FP) PO ONE (10:19)
[2024-07-14] MEDS: MAGNESIUM SULF 50% (8.12 MEQ/2 ML-1 GM VIAL) IVPB ONE (10:19)
== END 2024-07-14 10:44 | disposition home or self-care (01) ==
LOC: JER 08:12
DX: I48.92 Unspecified atrial flutter (principal); J06.9 Acute upper respiratory infection, unspecified; J20.9 Acute bronchitis, unspecified; R05.9 Cough, unspecified; R09.89 Other specified symptoms and signs involving the circulatory and respiratory systems; R06.00 Dyspnea, unspecified; R09.3 Abnormal sputum; R00.0 Tachycardia, unspecified; Z20.822 Contact with and (suspected) exposure to COVID-19
CPT/HCPCS: 0241U-QW; 36415; 71046-TC-FY; 80053; 83735; 83880; 84100; 84443; 84484; 85025; 85610; 85730; 86850; 86900; 86901; 93005; 93010; 99285-25